=== PATIENT | female | born 1995 | race African-American/Black ===

== ENCOUNTER 2018-09-24 15:19 | Emergency (ER) | payer MEDICAID ==
[2018-09-24] MEDS ORDERED: DUONEB 0.5-3 MG/3 ml Neb IH ONE ×2 (15:49→16:03)
[2018-09-24] MEDS ORDERED: DELTASONE 20 MG PO ONE (15:49)
--- NOTE | 2018-09-24 15:50 | ERPHSYRPT ---
- History of Present Illness Time Seen by Provider: 09/24/18 15:44 Patient Subjective Stated Complaint: had asthma flare up today and ran out of her inhaler. does not smoke but uses a vape Triage Nursing Assessment: ambulated to room per self. skin w/d, color normal, resp nonlabored. able to talk in complete sentences. Physician History: PATIENT WITH A HISTORY OF ASTHMA, STATES HER INHALER RAN OUT 2 DAYS AGO, HAS SORETHROAT AND CHEST TIGHTNESS, DENIES COUGH, FEVER ODR CHILLS. Timing/Duration: yesterday Activities at Onset: none Severity of Dyspnea-Max: moderate Severity of Dyspnea-Current: moderate Possible Cause: occasional episodes Modifying Factors: Improves With: activity Associated Symptoms: denies symptoms Allergies/Adverse Reactions: No Known Drug Allergies Allergy (Unverified 09/24/18 15:41) Home Medications: Albuterol Sulfate [Ventolin Hfa] 8 gm IH UD 09/24/18 [History] Dextroamphetamine/Amphetamine [Adderall 12.5 mg Tablet] 12.5 mg PO DAILY [History] Escitalopram Oxalate 10 mg [Lexapro 10 MG] 10 mg PO DAILY 09/24/18 [History] Medroxyprogesterone Acet [Depo-Provera] 150 mg IM UD 09/24/18 [History] Prednisone 5 mg [Deltasone 5 mg] 5 mg PO DAILY 09/24/18 [History] Hx Tetanus, Diphtheria Vaccination/Date Given: Yes Hx Influenza Vaccination/Date Given: Yes Hx Pneumococcal Vaccination/Date Given: No - Review of Systems Constitutional: No Fever, No Chills Ears, Nose, & Throat: Throat Pain Respiratory: Dyspnea, Wheezing Cardiac: No Symptoms Musculoskeletal: No Symptoms Psychological: No Symptoms - Past Medical History Pertinent Past Medical History: Yes Respiratory History: Asthma Psycho-Social History: Anxiety, Attention Deficit Disorder - Past Surgical History Past Surgical History: No - Social History Smoking Status: Never smoker Exposure to second hand smoke: No Drug Use: none Patient Lives Alone: No - Female History Hx Last Menstrual Period: 09/09/18 Hx Now: No (depo shot) - Nursing Vital Signs Nursing Vital Signs: Initial Vital Signs Temperature 98.3 F 09/24/18 15:21 Pulse Rate 91 H 03/15/19 15:21 Respiratory Rate 16 09/24/18 15:21 Blood Pressure 124/78 09/24/18 15:21 O2 Sat by Pulse Oximetry 99 09/24/18 15:21 Pain Scale Pain Intensity 0 - Physical Exam General Appearance: mild distress Eye Exam: PERRL/EOMI Ears, Nose, Throat Exam: pharyngeal erythema Neck Exam: normal inspection, supple Respiratory Exam: diminished breath sounds, wheezing (TERMINAL WHEEZES EXPIRATORY) Cardiovascular/Chest Exam: normal heart sounds Abdominal/Gastrointestinal Exam: soft, normal bowel sounds Peripheral Pulses Exam: carotid (R): 2+, carotid (L): 2+, femoral (R): 2+, femoral (L): 2+, dorsalis-pedis (R): 2+, dorsalis-pedis (L): 2+ Neurologic Exam: alert, oriented x 3 SpO2 Interpretation: normal SpO2: 99 Ordered Tests: Active Orders 24 hr Category Date Time Status Peak Expiratory Flow Rate ONCE RT 09/24/18 15:49 Completed Respiratory Nebulizer STAT RT 09/24/18 15:49 Completed Respiratory Therapy Assessment DAILY RT 09/25/18 07:00 Completed Medication Summary Discontinued Medications Generic Name Dose Route Start Last Admin Trade Name Freq PRN Reason Stop Dose Admin Albuterol/Ipratropium 3 ml 09/24/18 15:49 09/24/18 16:08 Duoneb 0.5-3 Mg/3 Ml Neb IH 09/24/18 15:50 3 ml STAT ONE Administration Albuterol/Ipratropium Confirm 09/24/18 16:03 Duoneb 0.5-3 Mg/3 Ml Neb Administered 09/24/18 16:04 Dose 3 ml IH .STK-MED ONE Prednisone 60 mg 09/24/18 15:49 09/24/18 16:17 Deltasone 20 Mg PO 09/24/18 15:50 60 mg STAT ONE Administration Prednisone Confirm 09/24/18 16:16 Deltasone 20 Mg Administered 09/24/18 16:17 Dose 60 mg .ROUTE .STK-MED ONE - Progress Progress: improved, re-examined Air Movement: good Progress Note: 09/24/18 16:36 DUONEB AEROSOL TX, PREDNISONE 60MG ORALLY Counseled pt/family regarding: lab results, diagnosis, need for follow-up - Departure Time of Disposition: 17:00 Departure Disposition: Home Clinical Impression: ACUTE EXACERBATION ASTHMA Condition: Stable Critical Care Time: No Additional Instructions: ALBUTEROL INHALER 2 PUFFS EVERY 4 HOURS NEEDED. ANTIBIOTIC ZITHROMAX 250MG, 2 TABLETS DAY 1, THEN 1 TABLET DAILY FOR 4 DAYS, PREDNISONE 20 MG, 2 TABLETS DAILY FOR 5 DAYS. CONSULT YOUR PRIMARY CARE PROVIDER FOR FOLLOWUP. RETURN TO EMERGENCY ROOM FOR DIFFICULTY BREATHING. Prescriptions: Albuterol 8 gm Mdi Hfa [Ventolin Hfa MDI] 2 puffs IH Q4H PRN PRN #1 [email or web address] PRN Reason: DIFFICULTY BREATHING Azithromycin 250 mg [Zithromax 250 MG TABLET] 250 mg PO DAILY #6 tablet Prednisone 20 mg [Deltasone 20 mg] 40 mg PO DAILY #10 tablet
[2018-09-24] MEDS ORDERED: DELTASONE 20 MG ONE (16:16)
[2018-09-24 17:25] VITALS: BP 135/67; PULSE 88; O2SAT 99
== END 2018-09-24 17:26 | disposition home or self-care (01) ==
LOC: ED 15:19
DX: J45.901 Unspecified asthma with (acute) exacerbation (principal)
CPT/HCPCS: 87651; 94150; 94640; 99284; A9270-GY

== ENCOUNTER 2018-12-10 12:41 | Emergency (ER) | payer MEDICAID ==
--- NOTE | 2018-12-10 13:04 | ERPHSYRPT ---
- History of Present Illness Time Seen by Provider: 12/10/18 12:55 Source: patient Exam Limitations: clinical condition Patient Subjective Stated Complaint: pt here for sob that started at 1130 this morning, she states she thinks it is her allergies, her nebulizer broke and is unable to take treaments Triage Nursing Assessment: pt alert, resp easy, chest clear. abd soft, no edema , no distress, coughing up white sputum Physician History: PATIENT WITH A HISTORY OF ASTHMA STATES SHE HAS BEEN SHORT OF BREATH X 2-3 DAYS , PRODUCTIVE COUGH CLEAR SPUTUM, STATES SHE RAN OUT OF HER INHALER AND HER NEBULIZER IS BROKE. DENIES CHEST PAIN. FEVER OR CHILLS. Timing/Duration: day(s) Activities at Onset: activity Severity of Dyspnea-Max: moderate Severity of Dyspnea-Current: moderate Possible Cause: occasional episodes Modifying Factors: Improves With: activity Associated Symptoms: cough, wheezing International travel in last 2 weeks: No Allergies/Adverse Reactions: No Known Drug Allergies Allergy (Unverified 09/24/18 15:41) Home Medications: Albuterol Sulfate [Ventolin Hfa] 8 gm IH UD 09/24/18 [History] Dextroamphetamine/Amphetamine [Adderall 12.5 mg Tablet] 12.5 mg PO DAILY [History] Escitalopram Oxalate 10 mg [Lexapro 10 MG] 10 mg PO DAILY 09/24/18 [History] Hx Tetanus, Diphtheria Vaccination/Date Given: Yes Hx Influenza Vaccination/Date Given: No Hx Pneumococcal Vaccination/Date Given: No Immunizations Up to Date: Yes - Review of Systems Constitutional: No Fever, No Chills Eyes: No Symptoms Ears, Nose, & Throat: No Symptoms Respiratory: Cough, Dyspnea on Exertion (FRAGA), No Dyspnea Cardiac: No Symptoms, No Chest Pain, No Edema, No Syncope Abdominal/Gastrointestinal: No Symptoms, No Abdominal Pain, No Nausea, No Vomiting, No Diarrhea Genitourinary Symptoms: No Dysuria Musculoskeletal: No Symptoms, No Back Pain, No Neck Pain Skin: No Symptoms, No Rash Neurological: No Dizziness, No Focal Weakness, No Sensory Changes Psychological: No Symptoms Endocrine: No Symptoms All Other Systems: Reviewed and Negative - Past Medical History Pertinent Past Medical History: Yes Respiratory History: Asthma Psycho-Social History: Anxiety, Attention Deficit Disorder - Past Surgical History Past Surgical History: Yes - Social History Smoking Status: Never smoker Exposure to second hand smoke: No Drug Use: none Patient Lives Alone: No - Female History Hx Last Menstrual Period: unsure Hx Now: No - Nursing Vital Signs Nursing Vital Signs: Initial Vital Signs Temperature 98.4 F 12/10/18 12:48 Pulse Rate 76 12/10/18 12:48 Respiratory Rate 18 12/10/18 12:48 Blood Pressure 118/79 12/10/18 12:48 O2 Sat by Pulse Oximetry 99 12/10/18 12:48 Pain Scale Pain Intensity 0 - Physical Exam General Appearance: no apparent distress, alert Eye Exam: PERRL/EOMI Neck Exam: normal inspection, supple Respiratory Exam: diminished breath sounds, other (TERMINAL EXPIRATORY WHEEZES FAINT) Cardiovascular/Chest Exam: normal heart sounds, regular rate/rhythm Abdominal/Gastrointestinal Exam: No tenderness, No distention, No mass Extremity Exam: non-tender, normal range of motion, normal inspection, no calf tenderness, no pedal edema Peripheral Pulses Exam: carotid (R): 2+, carotid (L): 2+, femoral (R): 2+, femoral (L): 2+, dorsalis-pedis (R): 2+, dorsalis-pedis (L): 2+ Neurologic Exam: alert, oriented x 3, cooperative, 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, sensation nml, No motor deficits Skin Exam: normal color, warm, No dry SpO2 Interpretation: normal SpO2: 99 Ordered Tests: Active Orders 24 hr Category Date Time Status Peak Expiratory Flow Rate ONCE RT 12/10/18 13:06 Completed Respiratory Therapy Assessment DAILY RT 12/10/18 13:21 Completed Medication Summary Discontinued Medications Generic Name Dose Route Start Last Admin Trade Name Joeq PRN Reason Stop Dose Admin Albuterol/Ipratropium 3 ml 12/10/18 13:05 12/10/18 13:17 Duoneb 0.5-3 Mg/3 Ml Neb IH 12/10/18 13:06 3 ml STAT ONE Administration Albuterol/Ipratropium Confirm 12/10/18 13:10 Duoneb 0.5-3 Mg/3 Ml Neb Administered 12/10/18 13:11 Dose 3 ml IH .STK-MED ONE Prednisone 60 mg 12/10/18 13:06 12/10/18 13:21 Deltasone 20 Mg PO 12/10/18 13:07 60 mg STAT ONE Administration Prednisone Confirm 12/10/18 13:20 Deltasone 20 Mg Administered 12/10/18 13:21 Dose 60 mg .ROUTE .STK-MED ONE - Progress Progress Note: 12/10/18 13:15 ADMINISTERED PREDNISONE 60MG, ORALLY, DUO NEB AEROSOL TX Counseled pt/family regarding: diagnosis, need for follow-up - Departure Departure Disposition: Home Clinical Impression: ACUTE EXACERBATION ASTHMA Condition: Stable Critical Care Time: No Referrals: DOCTOR,NO FAMILY [Primary Care Provider] - Additional Instructions: ALBUTEROL INHALER 2 PUFFS EVERY 4 HOURS NEEDED. ALBUTEROL NEBULIZER EVERY 4 HOURS AT HOME FOR DIFFICULTY BREATHING. ANTIBIOTIC AMOXICILLIN 500MG EVER 8 HOURS FOR 1 WEEK. PREDNISONE 20MG, 2 TABLETS DAILY FOR 4 DAYS. CONSULT YOUR PRIMARY CARE PROVIDER FOR FOLLOWUP IN 1 WEEK. Prescriptions: Albuterol 2.5 mg/3 ml Neb [Proventil 2.5 mg/3 ml Neb] 2.5 mg IH Q4HPRN PRN #30 neb PRN Reason: DIFFICULTY BREATHING Albuterol 8 gm Mdi Hfa [Ventolin Hfa MDI] 2 puffs IH Q4HPRN PRN #1 [email or web address] PRN Reason: DIFFICULTY BREATHING Amoxicillin 500 mg PO TID #21 capsule Prednisone 20 mg [Deltasone 20 mg] 2 tablet PO DAILY #8 tablet
[2018-12-10] MEDS ORDERED: DUONEB 0.5-3 MG/3 ml Neb IH ONE ×2 (13:05→13:10)
[2018-12-10] MEDS ORDERED: DELTASONE 20 MG PO ONE (13:06)
[2018-12-10] MEDS ORDERED: DELTASONE 20 MG ONE (13:20)
[2018-12-10 13:24] VITALS: PULSE 80
[2018-12-10 14:11] VITALS: BP 112/70; O2SAT 100
== END 2018-12-10 14:13 | disposition home or self-care (01) ==
LOC: ED 12:41
DX: J45.901 Unspecified asthma with (acute) exacerbation (principal)
CPT/HCPCS: 94640; 99283; A9270-GY

== ENCOUNTER 2018-12-13 12:15 | Emergency (ER) | payer MEDICAID ==
[~2018-12-13 12:15] MED LIST: PROVENTIL 2.5 MG/3 ML NEB IH ONE
[2018-12-13 12:17] VITALS: BP 106/87; O2SAT 100
--- NOTE | 2018-12-13 12:25 | ERPHSYRPT ---
- History of Present Illness Time Seen by Provider: 12/13/18 12:20 Source: patient Exam Limitations: clinical condition Physician History: 23m y/o female with h/o asthma presents with acute exacerbation of her asthma. pt seen here 12/10/18 for same issue. pt at that time told ED physician her nebulizer machine broken. pt did not fill any of her rx from 3 days ago. she states her papaw sending money. Timing/Duration: today Activities at Onset: none Severity of Dyspnea-Max: moderate Severity of Dyspnea-Current: moderate Possible Cause: occasional episodes Associated Symptoms: intermittent, wheezing Allergies/Adverse Reactions: No Known Drug Allergies Allergy (Verified 12/13/18 12:24) Home Medications: Albuterol Sulfate [Ventolin Hfa] 8 gm IH UD 09/24/18 [History] Dextroamphetamine/Amphetamine [Adderall 12.5 mg Tablet] 12.5 mg PO DAILY [History] Escitalopram Oxalate 10 mg [Lexapro 10 MG] 10 mg PO DAILY 09/24/18 [History] Hx Tetanus, Diphtheria Vaccination/Date Given: Yes Hx Influenza Vaccination/Date Given: No Hx Pneumococcal Vaccination/Date Given: No - Review of Systems Constitutional: No Symptoms Eyes: No Symptoms Ears, Nose, & Throat: No Symptoms Respiratory: Cough, Dyspnea, Wheezing Cardiac: No Symptoms Abdominal/Gastrointestinal: No Symptoms Genitourinary Symptoms: No Symptoms Musculoskeletal: No Symptoms Skin: No Symptoms Neurological: No Symptoms Psychological: Anxiety Endocrine: No Symptoms Hematologic/Lymphatic: No Symptoms Immunological/Allergic: No Symptoms All Other Systems: Reviewed and Negative - Past Medical History Pertinent Past Medical History: Yes Neurological History: No Pertinent History ENT History: No Pertinent History Cardiac History: No Pertinent History Respiratory History: Asthma Endocrine Medical History: No Pertinent History Musculoskeletal History: No Pertinent History GI Medical History: No Pertinent History History: No Pertinent History Psycho-Social History: Anxiety, Attention Deficit Disorder Female Reproductive Disorders: No Pertinent History - Past Surgical History Past Surgical History: Yes Neuro Surgical History: No Pertinent History Cardiac: No Pertinent History Respiratory: No Pertinent History Gastrointestinal: No Pertinent History Genitourinary: No Pertinent History Musculoskeletal: No Pertinent History Female Surgical History: No Pertinent History - Social History Smoking Status: Never smoker Exposure to second hand smoke: No Drug Use: none Patient Lives Alone: No - Nursing Vital Signs Nursing Vital Signs: Initial Vital Signs Pulse Rate 103 H 12/13/18 12:15 Respiratory Rate 100 H 12/13/18 12:15 Blood Pressure 106/87 12/13/18 12:15 O2 Sat by Pulse Oximetry 100 12/13/18 12:15 Pain Scale Pain Intensity 2 - Physical Exam General Appearance: mild distress, alert, anxiety Eye Exam: PERRL/EOMI Ears, Nose, Throat Exam: hearing grossly normal Neck Exam: normal inspection, non-tender, supple, full range of motion Respiratory Exam: respiratory distress (mild), wheezing, No crackles/rales, No rhonchi, No stridor Cardiovascular/Chest Exam: tachycardia Abdominal/Gastrointestinal Exam: soft, normal bowel sounds, No tenderness Rectal Exam: not done Extremity Exam: non-tender, normal range of motion, normal inspection Neurologic Exam: alert, oriented x 3, cooperative, 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 Skin Exam: normal color, warm, dry Lymphatic Exam: No adenopathy SpO2 Interpretation: normal SpO2: 100 O2 Delivery: Room Air Ordered Tests: Active Orders 24 hr Category Date Time Status Respiratory Therapy Assessment DAILY RT 12/13/18 12:37 Active Medication Summary Generic Name Dose Route Start Last Admin Trade Name Freq PRN Reason Stop Dose Admin Albuterol Sulfate 8 gm 12/13/18 12:28 Ventolin Hfa Mdi IH 01/12/19 12:27 Q4H PRN PRN SHORTNESS OF BREATH/WHEEZING Discontinued Medications Generic Name Dose Route Start Last Admin Trade Name Freq PRN Reason Stop Dose Admin Albuterol Sulfate 2.5 mg 12/13/18 12:15 Proventil 2.5 Mg/3 Ml Neb IH 12/13/18 12:16 STAT ONE Methylprednisolone Sodium Succinate 125 mg 12/13/18 12:30 12/13/18 12:34 Solu-Medrol 125 Mg IM 12/13/18 12:31 125 mg STAT ONE Administration Methylprednisolone Sodium Succinate Confirm 12/13/18 12:32 Solu-Medrol 125 Mg Administered 12/13/18 12:33 Dose 125 mg .ROUTE .STK-MED ONE - Progress Progress: improved Air Movement: good Progress Note: 12/13/18 12:48 pt states she is much better. Blood Culture(s) Obtained: No Antibiotics given: No Counseled pt/family regarding: diagnosis, need for follow-up - Departure Departure Disposition: Home Clinical Impression: Exacerbation of asthma Condition: Stable Critical Care Time: No Referrals: DOCTOR,NO FAMILY [Primary Care Provider] - Additional Instructions: fill all of the prescription medication written for you. return to ED as needed.
[2018-12-13] MEDS ORDERED: Ventolin Hfa MDI IH PRN (12:28)
[2018-12-13] MEDS ORDERED: solu-MEDROL 125 MG IM ONE (12:30)
[2018-12-13] MEDS ORDERED: solu-MEDROL 125 MG ONE (12:32)
[2018-12-13 12:53] VITALS: PULSE 96
== END 2018-12-13 12:58 | disposition home or self-care (01) ==
LOC: ED 12:15
DX: J45.901 Unspecified asthma with (acute) exacerbation (principal)
CPT/HCPCS: 94640; 96372; 99283; J2930; J7609; A9270-GY

== ENCOUNTER 2019-06-18 07:43 | Emergency (ER) | payer OTHER ==
[2019-06-18] MEDS ORDERED: solu-MEDROL 125 MG IM ONE (07:48)
[2019-06-18] MEDS ORDERED: DUONEB 0.5-3 MG/3 ml Neb IH ONE (07:48)
[2019-06-18 07:49] VITALS: O2SAT 100
[2019-06-18] MEDS ORDERED: PROVENTIL 2.5 MG/3 ML NEB IH ONE ×2 (07:51→07:55)
[2019-06-18] MEDS ORDERED: solu-MEDROL 125 MG ONE (07:53)
--- NOTE | 2019-06-18 07:54 | ERPHSYRPT ---
- History of Present Illness Time Seen by Provider: 06/18/19 07:52 Source: patient Exam Limitations: no limitations Patient Subjective Stated Complaint: Pt states "I am out of my rescue inhailer and I am having a bit of an asthma attack this morning." Triage Nursing Assessment: Pt presented alert and oriented X 3, skni pwd Pt ambulates with an upright steady gait, able to speak in clear full sentences. Pt tachypniec, wheezes heard throughout. Physician History: Pt states "I am out of my rescue inhailer and I am having a bit of an asthma attack this morning." She has asthma since childhood, no fever Timing/Duration: today Possible Cause: frequent episodes Modifying Factors: Improves With: nothing Associated Symptoms: wheezing Allergies/Adverse Reactions: No Known Drug Allergies Allergy (Verified 12/13/18 12:24) Home Medications: Albuterol Sulfate [Ventolin Hfa] 8 gm IH UD 09/24/18 [History] Dextroamphetamine/Amphetamine [Adderall 12.5 mg Tablet] 12.5 mg PO DAILY [History] Escitalopram Oxalate [Lexapro] 20 mg PO DAILY 06/18/19 [History] Hx Tetanus, Diphtheria Vaccination/Date Given: Yes Hx Influenza Vaccination/Date Given: Yes Hx Pneumococcal Vaccination/Date Given: No Immunizations Up to Date: Yes - Review of Systems Constitutional: No Fever, No Chills Eyes: No Symptoms Ears, Nose, & Throat: No Symptoms Respiratory: Dyspnea, Wheezing, No Cough Cardiac: No Chest Pain, No Edema, No Syncope Abdominal/Gastrointestinal: No Abdominal Pain, No Nausea, No Vomiting, No Diarrhea Genitourinary Symptoms: No Dysuria Musculoskeletal: No Back Pain, No Neck Pain Skin: No Rash Neurological: No Dizziness, No Focal Weakness, No Sensory Changes Psychological: No Symptoms Endocrine: No Symptoms All Other Systems: Reviewed and Negative - Past Medical History Pertinent Past Medical History: Yes Neurological History: No Pertinent History ENT History: No Pertinent History Cardiac History: No Pertinent History Respiratory History: Asthma Endocrine Medical History: No Pertinent History Musculoskeletal History: No Pertinent History GI Medical History: No Pertinent History History: No Pertinent History Psycho-Social History: Anxiety, Attention Deficit Disorder Female Reproductive Disorders: No Pertinent History - Past Surgical History Past Surgical History: Yes Neuro Surgical History: No Pertinent History Cardiac: No Pertinent History Respiratory: No Pertinent History Gastrointestinal: No Pertinent History Genitourinary: No Pertinent History Musculoskeletal: No Pertinent History Female Surgical History: No Pertinent History - Social History Smoking Status: Current every day smoker How long have you smoked: years Exposure to second hand smoke: Yes Drug Use: none Patient Lives Alone: No - Female History Hx Last Menstrual Period: 06/01/2019 Hx Now: No - Nursing Vital Signs Nursing Vital Signs: Initial Vital Signs Temperature 97.8 F 06/18/19 07:43 Pulse Rate 96 H 06/18/19 07:43 Respiratory Rate 26 H 06/18/19 07:43 Blood Pressure 131/90 06/18/19 07:43 O2 Sat by Pulse Oximetry 100 06/18/19 07:43 Pain Scale Pain Intensity 2 - Physical Exam General Appearance: no apparent distress, alert Eye Exam: PERRL/EOMI Neck Exam: normal inspection, supple Respiratory Exam: accessory muscle use, wheezing Cardiovascular/Chest Exam: normal heart sounds, regular rate/rhythm Abdominal/Gastrointestinal Exam: soft, No tenderness, No distention, No mass Extremity Exam: non-tender, normal range of motion, normal inspection, no calf tenderness, no pedal edema Neurologic Exam: alert, oriented x 3, cooperative, 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, sensation nml, No motor deficits Skin Exam: normal color, warm, No dry SpO2 Interpretation: normal SpO2: 100 - Course Nursing assessment & vital signs reviewed: Yes - Radiology Exams Chest X-ray Interpretation: Reviewed by me, Negative, No Pneumonia Ordered Tests: Active Orders 24 hr Category Date Time Status Oxygen-ED Only Nasal Cannula 2 lpm Care 06/18/19 07:48 Active CHEST 2 VIEWS (PA AND LAT) Stat Exams 06/18/19 07:48 Ordered BMP Stat Lab 06/18/19 08:01 Completed CBC W DIFF Stat Lab 06/18/19 08:01 Completed Respiratory Therapy Assessment DAILY RT 06/18/19 07:56 Completed Medication Summary Discontinued Medications Generic Name Dose Route Start Last Admin Trade Name Freq PRN Reason Stop Dose Admin Albuterol Sulfate Confirm 06/18/19 07:51 Proventil 2.5 Mg/3 Ml Neb Administered 06/18/19 07:52 Dose 2.5 mg IH .STK-MED ONE Albuterol Sulfate 2.5 mg 06/18/19 07:55 06/18/19 07:58 Proventil 2.5 Mg/3 Ml Neb IH 06/18/19 07:56 2.5 mg STAT ONE Administration Albuterol/Ipratropium 3 ml 06/18/19 07:48 Duoneb 0.5-3 Mg/3 Ml Neb IH 06/18/19 07:49 STAT ONE Methylprednisolone Sodium Succinate 125 mg 06/18/19 07:48 06/18/19 07:55 Solu-Medrol 125 Mg IM 06/18/19 07:49 125 mg STAT ONE Administration Methylprednisolone Sodium Succinate Confirm 06/18/19 07:53 Solu-Medrol 125 Mg Administered 06/18/19 07:54 Dose 125 mg .ROUTE .STK-MED ONE Lab/Rad Data: Laboratory Result Diagrams 06/18/19 08:01 06/18/19 08:01 Laboratory Results 06/18/19 06/18/19 Range/Units 08:01 08:01 WBC 9.4 (4.0-10.5) K/mm3 RBC 4.79 (4.1-5.4) M/mm3 Hgb 13.7 (12.0-16.0) gm/dl Hct 41.3 (35-47) % MCV 86.2 (78-100) fl MCH 28.6 (26-32) pg MCHC 33.2 (32-36) g/dl RDW 13.1 (11.5-14.0) % Plt Count 323 (150-450) K/mm3 MPV 9.0 (6-9.5) fl Gran % 53.7 (36.0-66.0) % Eos # (Auto) 1.27 H (0-0.5) Absolute Lymphs (auto) 2.42 (1.0-4.6) Absolute Monos (auto) 0.62 (0.0-1.3) Lymphocytes % 25.8 (24.0-44.0) % Monocytes % 6.6 (0.0-12.0) % Eosinophils % 13.5 H (0.00-5.0) % Basophils % 0.4 (0.0-0.4) % Absolute Granulocytes 5.03 (1.4-6.9) Basophils # 0.04 (0-0.4) Sodium 145 (137-145) mmol/L Potassium 4.4 (3.5-5.1) mmol/L Chloride 111 H (98-107) mmol/L Carbon Dioxide 27 (22-30) mmol/L Anion Gap 11.2 (5-15) MEQ/L BUN 13 (7-17) mg/dL Creatinine 0.73 (0.52-1.04) mg/dL Estimated GFR > 60.0 ML/MIN Glucose 86 (74-106) mg/dL Calcium 10.0 (8.4-10.2) mg/dL - Progress Progress: improved Air Movement: good Blood Culture(s) Obtained: No Antibiotics given: No Counseled pt/family regarding: lab results, diagnosis, need for follow-up, rad results - Departure Departure Disposition: Home Clinical Impression: Exacerbation of asthma Qualifiers: Asthma severity: moderate Asthma persistence: unspecified Qualified Code(s): J45.901 - Unspecified asthma with (acute) exacerbation Condition: Stable Critical Care Time: Yes Critical Care Time(excluding separately billable procedures): Critical 30-74 mins Referrals: LARRY JOHNS DO [Primary Care Provider] - Instructions: Asthma, Adult (DC) Additional Instructions: please use your rescue inhaler for next three days. Discharge/Care Plan JAYCHANTELLE D was seen on 06/18/19 in the Emergency Room. The patient was counseled regarding Diagnosis,Lab results, Imaging studies, need for follow up and when to return to the Emergency Room. Prescriptions given: Discharge Note I have spoken with the patient and/or caregivers. I have explained the patient' s condition, diagnosis and treatment plan based on the information available to me at this time. I have answered the patient's and/or caregiver's questions and addressed any concerns. The patient and/or caregivers have as good understanding of the patient's diagnosis, condition and treatment plan as can be expected at this point. The vital signs have been stable. The patient's condition is stable and appropriate for discharge from the emergency department. The patient will pursue further outpatient evaluation with the primary care physician or other designated or consulting physician as outlined in the discharge instructions. The patient and/or caregivers are agreeable to this plan of care and follow-up instructions have been explained in detail. The patient and/or caregivers have received these instruction. The patient/and or caregivers are aware that any significant change in condition or worsening of symptoms should prompt an immediate return to this or the closest emergency department or call 911.
[2019-06-18 08:04] LABS: Absolute Neutrophil Ct (ANC) 5.03 (1.4-6.9); BASOPHIL % 0.4 % (0.0-0.4); Basophil (Absolute #) 0.04 (0-0.4); Eosinophil % 13.5 % (0.00-5.0); Eosinophil (Absolute #) 1.27 (0-0.5); Hematocrit 41.3 % (35-47); Hemoglobin 13.7 gm/dl (12.0-16.0); Lymphocyte (Absolute #) 2.42 (1.0-4.6); Lymphocytes % 25.8 % (24.0-44.0); Mean Cell Volume 86.2 fl (78-100); Mean Corpuscular Hemoglobin 28.6 pg (26-32); Mean Corpuscular Hgb Concent. 33.2 g/dl (32-36); Monocyte (Absolute #) 0.62 (0.0-1.3); Monocytes % 6.6 % (0.0-12.0); Neutrophil % 53.7 % (36.0-66.0); Platelet Count 323 K/mm3 (150-450); Red Blood Count 4.79 M/mm3 (4.1-5.4); Red Cell Distribution Width 13.1 % (11.5-14.0); White Blood Count 9.4 K/mm3 (4.0-10.5)
[2019-06-18 08:15] LABS: ANION GAP 11.2 MEQ/L (5-15); BLOOD UREA NITROGEN 13 mg/dL (7-17); CHLORIDE 111 mmol/L (98-107); Carbon Dioxide 27 mmol/L (22-30); Creatinine 1 0.73 mg/dL (0.52-1.04); Glucose 86 mg/dL (74-106); Potassium 4.4 mmol/L (3.5-5.1); SODIUM 145 mmol/L (137-145)
[2019-06-18 08:42] VITALS: BP 99/69; PULSE 92
--- NOTE | 2019-06-18 19:36 | XRAY ---
Indication: Short of breath. Comparison: None PA/lateral chest demonstrates normal heart, lungs, and bony thorax with incidental bilateral nipple jewelry.
== END 2019-06-18 08:42 | disposition home or self-care (01) ==
LOC: ED 07:43
DX: J45.901 Unspecified asthma with (acute) exacerbation (principal)
CPT/HCPCS: 36415; 71046; 80048; 85025; 94640; 96372; 99284; 99291; J2930; J7609; A9270-GY

== ENCOUNTER 2019-09-21 13:42 | Emergency (ER) | payer OTHER ==
[2019-09-21] MEDS ORDERED: solu-MEDROL 125 MG IV ONE (13:46)
[2019-09-21] MEDS ORDERED: DUONEB 0.5-3 MG/3 ml Neb IH ONE ×2 (13:46→13:50)
[2019-09-21] MEDS ORDERED: solu-MEDROL 125 MG ONE (14:03)
--- NOTE | 2019-09-21 14:16 | XRAY ---
Indication: Short of breath. Comparison: June 18, 2019. Portable chest continues to demonstrate normal heart, lungs, and bony thorax with incidental bilateral nipple jewelry.
[2019-09-21 14:37] LABS: INFLUENZA A NEGATIVE (NEGATIVE); INFLUENZA B NEGATIVE (NEGATIVE); RESPIRATORY SYNCTIAL VIRUS NEGATIVE (Negative)
[2019-09-21 15:00] VITALS: BP 154/84; PULSE 126
[2019-09-21 15:05] VITALS: O2SAT 99
--- NOTE | 2019-09-21 15:05 | ERPHSYRPT ---
- History of Present Illness Time Seen by Provider: 09/21/19 13:50 Exam Limitations: no limitations Patient Subjective Stated Complaint: sob and wheezing onset 8 am today Triage Nursing Assessment: pt arrives with rapid resp and auditible wheezing noted pt has hx of asthma reports tightness noted throughout chest. pt p/w/d resp easy [id number] Physician History: Patient is a 24-year-old female with a history of asthma presents to our ED with an asthma exacerbation. Patient is wheezing. Symptoms started approximately 8 this morning. Patient self treated with albuterol inhaler with no relief. No associated chest pain. No nausea or vomiting. No diarrhea. No rash. The weather may have triggered her asthma. Patient voices no other complaints at this time. Timing/Duration: today Activities at Onset: rest, sleep Severity of Dyspnea-Max: mild Severity of Dyspnea-Current: mild Possible Cause: occasional episodes Modifying Factors: Improves With: albuterol inhaler Associated Symptoms: denies symptoms, constant, cough, wheezing, No chest pain/ discomfort, No edema, No fever, No insomnia, No loss of appetite, No lightheadedness, No weakness, No ankle swelling, No chills, No hemoptysis, No calf pain, No dizziness, No heaviness, No heart racing, No lightheadedness, No leg swelling, No muscle spasms feet, No muscle spasms hands, No painful breathing, No productive cough International travel in last 2 weeks: No Allergies/Adverse Reactions: No Known Drug Allergies Allergy (Verified 09/21/19 13:59) Home Medications: Escitalopram Oxalate [Lexapro] 20 mg PO DAILY 06/18/19 [History] Cetirizine HCl 10 mg PO DAILY 09/21/19 [History] Dextroamphetamine/Amphetamine [Dextroamp-Amphetamin 20 mg Tab] 40 mg PO DAILY [History] Loratadine 10 mg [Claritin 10 mg] 10 mg PO DAILY 09/21/19 [History] Prednisone 10 mg [Deltasone 10 mg] 40 mg PO DAILY 09/21/19 [History] Hx Tetanus, Diphtheria Vaccination/Date Given: Yes Hx Influenza Vaccination/Date Given: No Hx Pneumococcal Vaccination/Date Given: No - Review of Systems Constitutional: No Fever, No Chills Eyes: No Symptoms Ears, Nose, & Throat: No Symptoms Respiratory: No Symptoms, Cough, Wheezing, No Dyspnea Cardiac: No Symptoms, No Chest Pain, No Edema, No Syncope Abdominal/Gastrointestinal: No Symptoms, No Abdominal Pain, No Nausea, No Vomiting, No Diarrhea Genitourinary Symptoms: No Symptoms, No Dysuria Musculoskeletal: No Symptoms, No Back Pain, No Neck Pain Skin: No Symptoms, No Rash Neurological: No Symptoms, No Dizziness, No Focal Weakness, No Sensory Changes Psychological: No Symptoms Endocrine: No Symptoms Hematologic/Lymphatic: No Symptoms All Other Systems: Reviewed and Negative - Past Medical History Pertinent Past Medical History: Yes Neurological History: No Pertinent History ENT History: No Pertinent History Cardiac History: No Pertinent History Respiratory History: Asthma Endocrine Medical History: No Pertinent History Musculoskeletal History: No Pertinent History GI Medical History: No Pertinent History History: No Pertinent History Psycho-Social History: Anxiety, Attention Deficit Disorder Female Reproductive Disorders: No Pertinent History - Past Surgical History Past Surgical History: Yes Neuro Surgical History: No Pertinent History Cardiac: No Pertinent History Respiratory: No Pertinent History Gastrointestinal: No Pertinent History Genitourinary: No Pertinent History Musculoskeletal: No Pertinent History Female Surgical History: No Pertinent History Other Surgical History: oral - Social History Smoking Status: Current some day smoker How long have you smoked: years Exposure to second hand smoke: Yes Drug Use: none Patient Lives Alone: No - Female History Hx Last Menstrual Period: 08/14/19 Hx Now: No - Nursing Vital Signs Nursing Vital Signs: Initial Vital Signs Temperature 98.2 F 09/21/19 13:42 Pulse Rate 133 H 09/21/19 13:42 Respiratory Rate 28 H 09/21/19 13:42 Blood Pressure 176/99 09/21/19 13:42 O2 Sat by Pulse Oximetry 99 09/21/19 13:42 Pain Scale Pain Intensity 0 - Physical Exam General Appearance: no apparent distress Eye Exam: PERRL/EOMI Ears, Nose, Throat Exam: hearing grossly normal Neck Exam: normal inspection, supple Respiratory Exam: prolonged expirations, wheezing, No respiratory distress Cardiovascular/Chest Exam: normal heart sounds, regular rate/rhythm Abdominal/Gastrointestinal Exam: soft, No tenderness, No distention, No mass Extremity Exam: non-tender, normal range of motion, normal inspection, no calf tenderness, no pedal edema Neurologic Exam: alert, oriented x 3, cooperative, manager document control II-XII nml as tested, sensation nml, No motor deficits Skin Exam: normal color, warm, No dry SpO2 Interpretation: normal SpO2: 99 O2 Delivery: Room Air - Course Nursing assessment & vital signs reviewed: Yes - Radiology Exams Chest X-ray Interpretation: Teleradiologist Report (Chest x-ray normal. No acute pathology observed.) Ordered Tests: Active Orders 24 hr Category Date Time Status Health Sanitarian STAT Care 09/21/19 13:47 Active IV Insertion STAT Care 09/21/19 14:19 Active CHEST 1 VIEW (PORTABLE) Stat Exams 09/21/19 13:47 Completed Peak Expiratory Flow Rate ONCE RT 09/21/19 13:59 Active Respiratory Therapy Assessment DAILY RT 09/21/19 13:57 Active Medication Summary Discontinued Medications Generic Name Dose Route Start Last Admin Trade Name Freq PRN Reason Stop Dose Admin Albuterol/Ipratropium 3 ml 09/21/19 13:46 09/21/19 13:52 Duoneb 0.5-3 Mg/3 Ml Neb IH 09/21/19 13:47 3 ml STAT ONE Administration Albuterol/Ipratropium Confirm 09/21/19 13:50 Duoneb 0.5-3 Mg/3 Ml Neb Administered 09/21/19 13:51 Dose 3 ml IH .STK-MED ONE Methylprednisolone Sodium Succinate 125 mg 09/21/19 13:46 09/21/19 14:04 Solu-Medrol 125 Mg IV 09/21/19 13:47 125 mg STAT ONE Administration Methylprednisolone Sodium Succinate Confirm 09/21/19 14:03 Solu-Medrol 125 Mg Administered 09/21/19 14:04 Dose 125 mg .ROUTE .STK-MED ONE Lab/Rad Data: Laboratory Results 09/21/19 Range/Units 14:00 Influenza Type A Ag NEGATIVE (NEGATIVE) Influenza Type B Ag NEGATIVE (NEGATIVE) RSV (PCR) NEGATIVE (Negative) - Progress Progress: improved Air Movement: fair Progress Note: 09/21/19 15:19 Patient reassessed. Patient states he feels much better. Wheezing is almost completely resolved. Patient in no acute distress. Resting tachycardia observed. Heart rate approximately 1 20-1 30. This may be partially due to the albuterol however her heart rate is too high for discharge. Patient states that she has to leave as she is starting her work shift and does not want to miss work. Risk and benefits of leaving without treatment or further evaluation of the tachycardia discussed. Patient understands and states she has to go to work. An AMA form completed. Patient requested albuterol solution prescription. A prescription for a short course of prednisone was submitted to her pharmacy. Blood Culture(s) Obtained: No Antibiotics given: No Counseled pt/family regarding: lab results, diagnosis, need for follow-up, rad results, smoking cessation - Departure Departure Disposition: Home, AMA Clinical Impression: Asthma, Tachycardia Condition: Stable Critical Care Time: No Referrals: LARRY JOHNS DO [Primary Care Provider] - Additional Instructions: Discharge/Care Plan MICAH THOMPSON was seen on 09/21/19 in the Emergency Room. The patient was counseled regarding Diagnosis,Lab results, Imaging studies, need for follow up and when to return to the Emergency Room. Prescriptions given: Discharge Note I have spoken with the patient and/or caregivers. I have explained the patient' s condition, diagnosis and treatment plan based on the information available to me at this time. I have answered the patient's and/or caregiver's questions and addressed any concerns. The patient and/or caregivers have as good understanding of the patient's diagnosis, condition and treatment plan as can be expected at this point. The vital signs have been stable. The patient's condition is stable and appropriate for discharge from the emergency department. The patient will pursue further outpatient evaluation with the primary care physician or other designated or consulting physician as outlined in the discharge instructions. The patient and/or caregivers are agreeable to this plan of care and follow-up instructions have been explained in detail. The patient and/or caregivers have received these instruction. The patient/and or caregivers are aware that any significant change in condition or worsening of symptoms should prompt an immediate return to this or the closest emergency department or call 911. Prescriptions: Prednisone 20 mg [Deltasone 20 mg] 40 mg PO DAILY 3 Days #6 tablet
== END 2019-09-21 15:21 | disposition home or self-care (01) ==
LOC: ED 13:42
DX: J45.909 Unspecified asthma, uncomplicated (principal); R00.0 Tachycardia, unspecified; Z79.899 Other long term (current) drug therapy
CPT/HCPCS: 36000; 71045; 87631; 93041; 94150; 94640; 96374; 99284; J2930; A9270-GY

== ENCOUNTER 2020-03-06 17:33 | Emergency (ER) | payer BC, OTHER ==
[2020-03-06 18:12] LABS: Appearance CLOUDY (CLEAR); Bacteria MANY /HPF (NEGATIVE); Bilirubin NEGATIVE (NEGATIVE); Blood LARGE Ery/ul (0-5); Epithelial Cells RARE /HPF (FEW); Glucose NEGATIVE (NEGATIVE); Ketones NEGATIVE (NEGATIVE); Leukocyte Esterase MODERATE (NEGATIVE); Mucus SLIGHT /HPF (NEGATIVE); Nitrite POSITIVE (NEGATIVE); Protein,Urine Dip 100 (Negative); RBC >101 /HPF (0-2); Specific Gravity 1.025 (1.005-1.025); Urobilinogen NEGATIVE mg/dL (0-1); WBC >100 /HPF (0-5)
[2020-03-06] MEDS ORDERED: Macrobid 100MG Capsule PO ONE (18:43)
[2020-03-06] MEDS ORDERED: Macrobid 100MG Capsule ONE (18:45)
[2020-03-06 18:47] VITALS: BP 126/81; PULSE 84
[2020-03-06 18:48] VITALS: O2SAT 100
--- NOTE | 2020-03-06 18:48 | ERPHSYRPT ---
- History of Present Illness Time Seen by Provider: 03/06/20 17:55 Source: patient Patient Subjective Stated Complaint: UTI symptoms Triage Nursing Assessment: Patient ambulated back to ED and transferred self to bed. Patient A+O X 3. Patient's skin pink, warm and dry. Patient complains of urgency and frequency upon urination since yesterday. Patient states she noticed blood in her urine today. Patient denies pain or discomfort currently but states when she voids it's painful. Physician History: Patient is a 24-year-old female presents to our ED with complaints of dysuria, increased urinary frequency and urgency. Patient admits to history of UTI. Symptoms are similar. No fever. No back pain. Symptoms started 2 days ago's. Symptoms have been constant. Symptoms are mild to moderate in intensity. No vaginal discharge. No specific worsening improving factors. Patient is otherwise healthy. She voices no other complaints at this time. Patient declined pain medication. Timing/Duration: day(s) (Is ago.) Activites at Onset: none Quality: burning Onset Location: suprapubic Pain Radiation: none Severity of Pain-Max: moderate Severity of Pain-Current: mild Sexual intercourse history: non-contributory Modifying Factors: Improves With: nothing Associated Symptoms: denies symptoms, urinary frequency, No abdominal pain, No fever, No nausea, No dysuria, No nocturia, No polyuria, No loss of bladder control, No vaginal discharge Allergies/Adverse Reactions: No Known Drug Allergies Allergy (Verified 03/06/20 17:48) Home Medications: Escitalopram Oxalate [Lexapro] 20 mg PO DAILY 06/18/19 [History] Dextroamphetamine/Amphetamine [Dextroamp-Amphetamin 20 mg Tab] 40 mg PO DAILY 09/21/19 [History] Loratadine 10 mg [Claritin 10 mg] 10 mg PO DAILY 09/21/19 [History] Hx Tetanus, Diphtheria Vaccination/Date Given: Yes Hx Influenza Vaccination/Date Given: No Hx Pneumococcal Vaccination/Date Given: No Travel Risk - International Travel Have you traveled outside of the country in past 3 weeks: No - Coronavirus Screening Close contact with a COVID-19 positive Pt in past 14-21 Days: No - Review of Systems Constitutional: No Symptoms, No Fever, No Chills Eyes: No Symptoms Ears, Nose, & Throat: No Symptoms Respiratory: No Symptoms, No Cough, No Dyspnea Cardiac: No Symptoms, No Chest Pain, No Edema, No Syncope Abdominal/Gastrointestinal: No Symptoms, No Abdominal Pain, No Nausea, No Vomiting, No Diarrhea Genitourinary Symptoms: No Symptoms, No Dysuria Musculoskeletal: No Symptoms, No Back Pain, No Neck Pain Skin: No Symptoms, No Rash Neurological: No Symptoms, No Dizziness, No Focal Weakness, No Sensory Changes Psychological: No Symptoms Endocrine: No Symptoms Hematologic/Lymphatic: No Symptoms Immunological/Allergic: No Symptoms All Other Systems: Reviewed and Negative - Past Medical History Pertinent Past Medical History: Yes Neurological History: No Pertinent History ENT History: No Pertinent History Cardiac History: No Pertinent History Respiratory History: Asthma Endocrine Medical History: No Pertinent History Musculoskeletal History: No Pertinent History GI Medical History: No Pertinent History History: No Pertinent History Psycho-Social History: Anxiety, Attention Deficit Disorder Female Reproductive Disorders: No Pertinent History Other Medical History: Seasonal allergies - Past Surgical History Past Surgical History: Yes Neuro Surgical History: No Pertinent History Cardiac: No Pertinent History Respiratory: No Pertinent History Gastrointestinal: No Pertinent History Genitourinary: No Pertinent History Musculoskeletal: No Pertinent History Female Surgical History: No Pertinent History Other Surgical History: oral - Social History Smoking Status: Current some day smoker How long have you smoked: years Exposure to second hand smoke: Yes Drug Use: marijuana Patient Lives Alone: No - Female History Hx Last Menstrual Period: Depo Hx Now: No - Nursing Vital Signs Nursing Vital Signs: Initial Vital Signs Temperature 98.2 F 03/06/20 17:48 Pulse Rate 113 H 03/06/20 17:48 Respiratory Rate 18 03/06/20 17:48 Blood Pressure 154/87 03/06/20 17:48 O2 Sat by Pulse Oximetry 100 03/06/20 17:48 Pain Scale Pain Intensity 0 - Physical Exam General Appearance: no apparent distress, alert Eye Exam: PERRL/EOMI, eyes nml inspection Ears, Nose, Throat Exam: normal ENT inspection, TMs normal, pharynx normal, moist mucous membranes Neck Exam: normal inspection, non-tender, supple, full range of motion Respiratory Exam: normal breath sounds, lungs clear, No respiratory distress Cardiovascular Exam: regular rate/rhythm, normal heart sounds, normal peripheral pulses Gastrointestinal/Abdomen Exam: soft, No tenderness, No mass Back Exam: normal inspection, normal range of motion, No CVA tenderness, No vertebral tenderness Extremity Exam: normal inspection, normal range of motion, pelvis stable Neurologic Exam: alert, oriented x 3, cooperative, pediatric physical therapy assistant II-XII nml as tested, normal mood/affect, sensation nml, No motor deficits Skin Exam: normal color, warm, dry Lymphatic Exam: No adenopathy SpO2 Interpretation: normal SpO2: 100 O2 Delivery: Room Air - Course Nursing assessment & vital signs reviewed: Yes Ordered Tests: Active Orders 24 hr Category Date Time Status CULTURE,URINE Stat Lab 03/06/20 17:43 Received HCG,QUALITATIVE URINE Stat Lab 03/06/20 17:43 Completed UA W/RFX UR CULTURE Stat Lab 03/06/20 17:43 Completed Lab/Rad Data: Laboratory Results 03/06/20 03/06/20 Range/Units 17:43 17:43 Urine Color YELLOW (YELLOW) Urine Appearance CLOUDY (CLEAR) Urine pH 5.0 (5-6) Ur Specific [place] [employer] 1.025 (1.005-1.025) Urine Protein 100 (Negative) Urine Ketones NEGATIVE (NEGATIVE) Urine Blood LARGE (0-5) [place]/ul Urine Nitrite POSITIVE (NEGATIVE) Urine Bilirubin NEGATIVE (NEGATIVE) Urine Urobilinogen NEGATIVE (0-1) mg/dL Ur Leukocyte Esterase MODERATE (NEGATIVE) Urine WBC (Auto) >100 (0-5) /HPF Urine RBC (Auto) >101 (0-2) /HPF U Epithel Cells (Auto) RARE (FEW) /HPF Urine Bacteria (Auto) MANY (NEGATIVE) /HPF Urine Mucus (Auto) SLIGHT (NEGATIVE) /HPF Urine Culture Reflexed YES (NO) Urine Glucose NEGATIVE (NEGATIVE) mg/dL Urine HCG, Qual NEGATIVE (Negative) - Progress Progress: improved Air Movement: good Progress Note: 03/06/20 18:50 Patient reassessed. She feels well. UA significant for UTI. Patient declined pain medication. Work note provided. Patient received a dose of Macrobid in our ED. A prescription for the same was provided to her. Patient agrees to follow-up with her primary care doctor within 48 hours for evaluation. Patient voices no complaints or concerns at this time. negative. 03/06/20 18:51 Blood Culture(s) Obtained: No Antibiotics given: Yes Counseled pt/family regarding: diagnosis, need for follow-up - Departure Departure Disposition: Home Clinical Impression: UTI (urinary tract infection) Condition: Stable Critical Care Time: No Referrals: LARRY JOHNS DO [Primary Care Provider] - Additional Instructions: Discharge/Care Plan JAYCHANTELLE D was seen on 03/06/20 in the Emergency Room. The patient was counseled regarding Diagnosis,Lab results, Imaging studies, need for follow up and when to return to the Emergency Room. Prescriptions given: Discharge Note I have spoken with the patient and/or caregivers. I have explained the patient's condition, diagnosis and treatment plan based on the information available to me at this time. I have answered the patient's and/or caregiver's questions and addressed any concerns. The patient and/or caregivers have as good understanding of the patient's diagnosis, condition and treatment plan as can be expected at this point. The vital signs have been stable. The patient's condition is stable and appropriate for discharge from the emergency department. The patient will pursue further outpatient evaluation with the primary care physician or other designated or consulting physician as outlined in the discharge instructions. The patient and/or caregivers are agreeable to this plan of care and follow-up instructions have been explained in detail. The patient and/or caregivers have received these instruction. The patient/and or caregivers are aware that any significant change in condition or worsening of symptoms should prompt an immediate return to this or the closest emergency department or call 911. Forms: Work/School Release Form
== END 2020-03-06 18:54 | disposition home or self-care (01) ==
LOC: ED 17:33
DX: N39.0 Urinary tract infection, site not specified (principal)
CPT/HCPCS: 81001; 84703; 87077; 87086; 87186; 99283; A9270-GY

== ENCOUNTER 2020-10-05 10:59 | Emergency (ER) | payer OTHER ==
[2020-10-05] MEDS ORDERED: DUONEB 0.5-3 MG/3 ml Neb IH ONE (11:03)
[2020-10-05] MEDS: DUONEB 0.5-3 MG/3 ml Neb IH ONE (11:05)
[2020-10-05] MEDS ORDERED: solu-MEDROL 125 MG ONE (11:06)
[2020-10-05] MEDS: solu-MEDROL 125 MG IV ONE (11:09)
[2020-10-05] MEDS ORDERED: PROVENTIL 2.5 MG/3 ML NEB IH ONE (11:10)
--- NOTE | 2020-10-05 11:11 | ERPHSYRPT ---
- History of Present Illness Time Seen by Provider: 10/05/20 11:11 Source: patient Exam Limitations: clinical condition Patient Subjective Stated Complaint: Pt c/o of an asthma attack since around 0400 this am Triage Nursing Assessment: Pt was brought to the ER by a friend, tachycardic, denies pain, hx of asthma, walked into ER by self, took treatment at home approx 1 hour before arriving, ins & exp wheezing throughout Physician History: This is a 25-year-old female who has a history of asthma and is on Pulmicort inhaler, Singulair, and albuterol inhaler/nebulizer. At approximately 4:00 this morning patient awoke wheezing and short of breath. Patient denies chest pain. She has not had a fever. She has no abdominal pain. She denies nausea vomiting and diarrhea. She has used her nebulizer today but she was not improving. Timing/Duration: today, sudden, worse Activities at Onset: none Severity of Dyspnea-Max: moderate Severity of Dyspnea-Current: moderate Possible Cause: occasional episodes Modifying Factors: Improves With: coughing Associated Symptoms: cough, wheezing Allergies/Adverse Reactions: No Known Drug Allergies Allergy (Verified 10/05/20 11:08) Home Medications: Escitalopram Oxalate [Lexapro] 20 mg PO DAILY 06/18/19 [History] Dextroamphetamine/Amphetamine [Dextroamp-Amphetamin 20 mg Tab] 40 mg PO DAILY 09/21/19 [History] Loratadine 10 mg [Claritin 10 mg] 10 mg PO DAILY 09/21/19 [History] Albuterol Sulfate [Albuterol Sulfate Hfa] 2 inh PO Q4H 10/05/20 [History] Budesonide [Pulmicort Flexhaler] 1 inh PO UD 10/05/20 [History] Montelukast Sodium 10 mg [Singulair 10 MG] 10 mg PO DAILY 10/05/20 [History] Hx Tetanus, Diphtheria Vaccination/Date Given: Yes Hx Influenza Vaccination/Date Given: No Hx Pneumococcal Vaccination/Date Given: No Travel Risk - International Travel Have you traveled outside of the country in past 3 weeks: No - Coronavirus Screening Are you exhibiting any of the following symptoms?: No Close contact with a COVID-19 positive Pt in past 14-21 Days: No - Review of Systems Constitutional: No Symptoms Eyes: No Symptoms Ears, Nose, & Throat: No Symptoms Respiratory: Cough, Dyspnea, Wheezing Cardiac: No Symptoms Abdominal/Gastrointestinal: No Symptoms Genitourinary Symptoms: No Symptoms Musculoskeletal: No Symptoms Skin: No Symptoms Neurological: No Symptoms Psychological: No Symptoms Endocrine: No Symptoms Hematologic/Lymphatic: No Symptoms Immunological/Allergic: No Symptoms All Other Systems: Reviewed and Negative - Past Medical History Pertinent Past Medical History: Yes Neurological History: No Pertinent History ENT History: No Pertinent History Cardiac History: No Pertinent History Respiratory History: Asthma Endocrine Medical History: No Pertinent History Musculoskeletal History: No Pertinent History GI Medical History: No Pertinent History History: No Pertinent History Psycho-Social History: Anxiety, Attention Deficit Disorder Female Reproductive Disorders: No Pertinent History Other Medical History: Seasonal allergies - Past Surgical History Past Surgical History: Yes Neuro Surgical History: No Pertinent History Cardiac: No Pertinent History Respiratory: No Pertinent History Gastrointestinal: No Pertinent History Genitourinary: No Pertinent History Musculoskeletal: No Pertinent History Female Surgical History: No Pertinent History Other Surgical History: oral - Social History Smoking Status: Current some day smoker How long have you smoked: years Exposure to second hand smoke: No Drug Use: marijuana Patient Lives Alone: No - Female History Hx Now: No (depo) - Nursing Vital Signs Nursing Vital Signs: Initial Vital Signs Temperature 98.2 F 10/05/20 11:00 Pulse Rate 121 H 10/05/20 11:00 Blood Pressure 134/93 10/05/20 11:00 O2 Sat by Pulse Oximetry 99 10/05/20 11:00 Pain Scale Pain Intensity 0 - Physical Exam General Appearance: mild distress, alert, anxiety Eye Exam: PERRL/EOMI, eyes nml inspection Ears, Nose, Throat Exam: hearing grossly normal, normal ENT inspection, normal pharynx Neck Exam: normal inspection, non-tender, supple, full range of motion Respiratory Exam: lungs clear, respiratory distress (Mild), airway intact, wheezing, No chest tenderness Cardiovascular/Chest Exam: tachycardia Abdominal/Gastrointestinal Exam: soft, normal bowel sounds, No tenderness Rectal Exam: not done Extremity Exam: non-tender, normal range of motion, normal inspection Skin Exam: normal color, warm, dry Lymphatic Exam: No adenopathy SpO2 Interpretation: normal SpO2: 99 O2 Delivery: Room Air - Course Nursing assessment & vital signs reviewed: Yes Ordered Tests: Active Orders 24 hr Category Date Time Status Respiratory Therapy Assessment DAILY RT 10/05/20 11:07 Active Medication Summary Discontinued Medications Generic Name Dose Route Start Last Admin Trade Name Matthew CAPONE Reason Stop Dose Admin Albuterol Sulfate Confirm 10/05/20 11:10 Proventil 2.5 Mg/3 Ml Neb Administered 10/05/20 11:11 Dose 2.5 mg IH .STK-MED ONE Albuterol Sulfate 2.5 mg 10/05/20 11:12 Proventil 2.5 Mg/3 Ml Neb IH 10/05/20 11:13 STAT ONE Albuterol/Ipratropium Confirm 10/05/20 11:03 Duoneb 0.5-3 Mg/3 Ml Neb Administered 10/05/20 11:04 Dose 3 ml IH .STK-MED ONE Albuterol/Ipratropium 3 ml 10/05/20 11:07 Duoneb 0.5-3 Mg/3 Ml Neb IH 10/05/20 11:08 STAT ONE Methylprednisolone Sodium Succinate 125 mg 10/05/20 11:07 10/05/20 11:09 Solu-Medrol 125 Mg IV 10/05/20 11:08 125 mg STAT ONE Administration Methylprednisolone Sodium Succinate Confirm 10/05/20 11:06 Solu-Medrol 125 Mg Administered 10/05/20 11:07 Dose 125 mg .ROUTE .STK-MED ONE - Progress Progress: improved, re-examined Air Movement: fair Progress Note: 10/05/20 11:26 Clinically, the patient is improving. There is more air movement. Blood Culture(s) Obtained: No Antibiotics given: No Counseled pt/family regarding: diagnosis, need for follow-up - Departure Departure Disposition: Extended Care Facility Clinical Impression: Acute exacerbation of extrinsic asthma Condition: Stable Critical Care Time: No Referrals: LARRY JOHNS DO [Primary Care Provider] - Additional Instructions: Drink plenty of fluids. Use your nebulizer every 4 hours while awake. Additionally continue your other inhalers as prescribed. Return to the emergency department if symptoms recur/worsen Prescriptions: Prednisone 10 mg [Deltasone 10 mg] 10 mg PO TID #12 tablet Azithromycin 250 mg [Zithromax 250 MG TABLET] 250 mg PO ZPACK #6 tablet
[2020-10-05] MEDS: PROVENTIL 2.5 MG/3 ML NEB IH ONE (11:12)
[2020-10-05 12:07] VITALS: BP 129/89; PULSE 108; O2SAT 98
[2020-10-05] MEDS ORDERED: ZOFRAN ODT 4 MG ONE (16:39)
== END 2020-10-05 12:16 | disposition home or self-care (01) ==
LOC: ED 10:59
DX: J45.909 Unspecified asthma, uncomplicated (principal)
CPT/HCPCS: 36000; 94640; 96374; 99284; J2930; J7609; Q0162; A9270-GY

== ENCOUNTER 2020-10-05 14:13 | Inpatient (IN) | payer OTHER ==
[2020-10-05] MEDS ORDERED: Sodium Chloride 3 ML UD NEBULES IH ONE (14:17)
[2020-10-05] MEDS ORDERED: Xopenex 1.25 MG/0.5 ML UD NEBULE IH ONE ×2 (14:17→14:33)
--- NOTE | 2020-10-05 14:29 | ERPHSYRPT ---
- History of Present Illness Time Seen by Provider: 10/05/20 14:20 Source: patient Exam Limitations: no limitations Patient Subjective Stated Complaint: pt here for increase sob she was dc from er about an hour ago, she states she suddenly got worse,,pt dsoes have pets at home Triage Nursing Assessment: pt alert, walked in, resp labored, skin w/d/normal, diminished BS, wheezes heard Physician History: This is a 25-year-old female who has known history of asthma and was just recently discharged from the emergency department after an exacerbation of her asthma. At the time of her discharge approximately 2 to 3 hours ago, her heart rate was approximately 105-106 beats per minute. Her room air oxygenation level was 99 to 100% on room air. Symptomatically, she was comfortable and wanted to be discharged to home. She was discharged home with a prescription for albuterol nebulizer solution, prednisone, and azithromycin. Once she was home she began to have recurrent symptoms. She arrived with a heart rate in the 130s room air oxygenation of 96%, and she is wheezing. Activities at Onset: none Severity of Dyspnea-Max: moderate Severity of Dyspnea-Current: moderate Possible Cause: occasional episodes Modifying Factors: Improves With: coughing Associated Symptoms: anxiety, cough, wheezing Allergies/Adverse Reactions: No Known Drug Allergies Allergy (Verified 10/05/20 14:21) Home Medications: Escitalopram Oxalate [Lexapro] 20 mg PO DAILY 06/18/19 [History] Dextroamphetamine/Amphetamine [Dextroamp-Amphetamin 20 mg Tab] 40 mg PO DAILY 09/21/19 [History] Loratadine 10 mg [Claritin 10 mg] 10 mg PO DAILY 09/21/19 [History] Albuterol Sulfate [Albuterol Sulfate Hfa] 2 inh PO Q4H 10/05/20 [History] Budesonide [Pulmicort Flexhaler] 1 inh PO UD 10/05/20 [History] Montelukast Sodium 10 mg [Singulair 10 MG] 10 mg PO DAILY 10/05/20 [History] Hx Tetanus, Diphtheria Vaccination/Date Given: Yes Hx Influenza Vaccination/Date Given: No Hx Pneumococcal Vaccination/Date Given: No Immunizations Up to Date: Yes Travel Risk - International Travel Have you traveled outside of the country in past 3 weeks: No - Coronavirus Screening Are you exhibiting any of the following symptoms?: No Close contact with a COVID-19 positive Pt in past 14-21 Days: No - Review of Systems Constitutional: No Symptoms Eyes: No Symptoms Ears, Nose, & Throat: No Symptoms Respiratory: Cough, Dyspnea, Wheezing Cardiac: No Symptoms Abdominal/Gastrointestinal: No Symptoms Genitourinary Symptoms: No Symptoms Musculoskeletal: No Symptoms Skin: No Symptoms Neurological: No Symptoms Psychological: No Symptoms Endocrine: No Symptoms Hematologic/Lymphatic: No Symptoms Immunological/Allergic: No Symptoms All Other Systems: Reviewed and Negative - Past Medical History Pertinent Past Medical History: Yes Neurological History: No Pertinent History ENT History: No Pertinent History Cardiac History: No Pertinent History Respiratory History: Asthma Endocrine Medical History: No Pertinent History Musculoskeletal History: No Pertinent History GI Medical History: No Pertinent History History: No Pertinent History Psycho-Social History: Anxiety, Attention Deficit Disorder Female Reproductive Disorders: No Pertinent History Other Medical History: Seasonal allergies - Past Surgical History Past Surgical History: Yes Neuro Surgical History: No Pertinent History Cardiac: No Pertinent History Respiratory: No Pertinent History Gastrointestinal: No Pertinent History Genitourinary: No Pertinent History Musculoskeletal: No Pertinent History Female Surgical History: No Pertinent History Other Surgical History: oral - Social History Smoking Status: Current some day smoker How long have you smoked: years Exposure to second hand smoke: No Drug Use: marijuana Patient Lives Alone: No - Female History Hx Last Menstrual Period: unsure Hx Now: No - Nursing Vital Signs Nursing Vital Signs: Initial Vital Signs Temperature 98.2 F 10/05/20 14:14 Pulse Rate 136 H 10/05/20 14:14 Respiratory Rate 28 H 10/05/20 14:14 Blood Pressure 164/121 10/05/20 14:14 O2 Sat by Pulse Oximetry 97 10/05/20 14:14 Pain Scale Pain Intensity 0 - Physical Exam General Appearance: moderate distress, alert, anxiety Eye Exam: PERRL/EOMI Ears, Nose, Throat Exam: hearing grossly normal Neck Exam: normal inspection, non-tender, supple, full range of motion Respiratory Exam: respiratory distress (Mild), airway intact, wheezing Cardiovascular/Chest Exam: tachycardia Abdominal/Gastrointestinal Exam: soft, normal bowel sounds, No tenderness Rectal Exam: not done Extremity Exam: non-tender, normal range of motion, normal inspection Neurologic Exam: alert, oriented x 3, cooperative, medicaid collection specialist II-XII nml as tested, normal mood/affect, nml cerebellar function, nml station & gait, sensation nml Skin Exam: normal color, dry Lymphatic Exam: No adenopathy SpO2 Interpretation: normal SpO2: 97 O2 Delivery: Room Air - Course Nursing assessment & vital signs reviewed: Yes EKG Interpreted by Me: RATE ([id number]), Sinus Tach, NORMAL AXIS, NORMAL INTERVALS, NORMAL QRS, NORMAL ST-T Ordered Tests: Active Orders 24 hr Category Date Time Status Senior Ui Ux Designer STAT Care 10/05/20 14:53 Active EKG-ER Only STAT Care 10/05/20 14:30 Active IV Insertion STAT Care 10/05/20 14:30 Active Pulse Oximetry (ED) STAT Care 10/05/20 14:30 Active CHEST 1 VIEW (PORTABLE) Stat Exams 10/05/20 14:30 Completed CHEST WITH CONTRAST [CT] Stat Exams 10/05/20 15:28 Taken CBC W DIFF Stat Lab 10/05/20 14:50 Completed CMP Stat Lab 10/05/20 14:50 Completed D-DIMER QUANTITATIVE Stat Lab 10/05/20 14:50 Completed INFLUENZA A+B BUFFY Stat Lab 10/05/20 14:50 Completed Lactic Acid Stat Lab 10/05/20 14:50 Completed Lactic Acid Stat Lab 10/05/20 16:58 Received MAGNESIUM Stat Lab 10/05/20 14:50 Completed NT PRO BNP Stat Lab 10/05/20 14:50 Completed TROPONIN Q3H Lab 10/05/20 14:30 Completed TROPONIN Q3H Lab 10/06/20 02:30 Ordered Respiratory Therapy Assessment DAILY RT 10/05/20 14:37 Active Transfer Order Routine Transfer 10/05/20 Ordered Medication Summary Generic Name Dose Route Start Last Admin Trade Name Freq PRN Reason Stop Dose Admin Sodium Chloride 1,000 mls @ 999 mls/hr 10/05/20 17:58 10/05/20 18:00 Sodium Chloride 0.9% 1000 Ml IV 10/05/20 18:58 999 mls/hr .Q1H1M STA Administration Meropenem 1 g/ Sodium Chloride 100 mls @ 200 mls/hr 10/05/20 17:58 IV 10/05/20 18:27 STAT ONE Discontinued Medications Generic Name Dose Route Start Last Admin Trade Name Freq PRN Reason Stop Dose Admin Diphenhydramine HCl 25 mg 10/05/20 14:45 10/05/20 14:59 Benadryl 50 Mg/Ml IV 10/05/20 14:46 25 mg STAT ONE Administration Diphenhydramine HCl Confirm 10/05/20 14:54 Benadryl 50 Mg/Ml Administered 10/05/20 14:55 Dose 50 mg .ROUTE .STK-MED ONE Famotidine 40 mg 10/05/20 14:45 10/05/20 15:00 Pepcid 20 Mg Vial IV 10/05/20 14:46 40 mg STAT ONE Administration Famotidine Confirm 10/05/20 14:54 Pepcid 20 Mg Vial Administered 10/05/20 14:55 Dose 40 mg IV .STK-MED ONE Sodium Chloride 1,000 mls @ 999 mls/hr 10/05/20 15:06 10/05/20 16:09 Sodium Chloride 0.9% 1000 Ml IV 10/05/20 16:06 Infused .Q1H1M STA Infusion Sodium Chloride Confirm 10/05/20 15:06 Sodium Chloride 0.9% 1000 Ml Administered 10/05/20 15:07 Dose 1,000 mls @ ud .ROUTE .STK-MED ONE Sodium Chloride Confirm 10/05/20 17:59 Sodium Chloride 0.9% 1000 Ml Administered 10/05/20 18:00 Dose 1,000 mls @ ud .ROUTE .STK-MED ONE Levalbuterol HCl Confirm 10/05/20 14:17 Xopenex 1.25 Mg/0.5 Ml Ud Nebule Administered 10/05/20 14:18 Dose 1.25 mg IH .STK-MED ONE Levalbuterol HCl 1.25 mg 10/05/20 14:33 10/05/20 14:20 Xopenex 1.25 Mg/0.5 Ml Ud Nebule IH 10/05/20 14:34 1.25 mg STAT ONE Administration Methylprednisolone Sodium Succinate 125 mg 10/05/20 14:30 10/05/20 14:59 Solu-Medrol 125 Mg IV 10/05/20 14:31 125 mg STAT ONE Administration Methylprednisolone Sodium Succinate Confirm 10/05/20 14:55 Solu-Medrol 125 Mg Administered 10/05/20 14:56 Dose 125 mg .ROUTE .STK-MED ONE Ondansetron HCl 4 mg 10/05/20 16:37 10/05/20 16:39 Zofran Odt 4 Mg PO 10/05/20 16:38 4 mg STAT ONE Administration Oseltamivir Phosphate 75 mg 10/05/20 15:29 10/05/20 15:33 Tamiflu 75mg Capsule PO 10/05/20 15:30 75 mg STAT ONE Administration Oseltamivir Phosphate Confirm 10/05/20 15:32 Tamiflu 75mg Capsule Administered 10/05/20 15:33 Dose 75 mg PO .STK-MED ONE Sodium Chloride Confirm 10/05/20 14:17 Sodium Chloride 3 Ml Ud Nebules Administered 10/05/20 14:18 Dose 3 ml IH .STK-MED ONE Lab/Rad Data: Laboratory Result Diagrams 10/05/20 14:50 10/05/20 14:50 Laboratory Results 10/05/20 10/05/20 10/05/20 Range/Units 17:07 14:50 14:50 WBC (4.0-10.5) K/mm3 RBC (4.1-5.4) M/mm3 Hgb (12.0-16.0) gm/dl Hct (35-47) % MCV (78-100) fl MCH (26-32) pg MCHC (32-36) g/dl RDW (11.5-14.0) % Plt Count (150-450) K/mm3 MPV (7.5-11.0) fl Gran % (36.0-66.0) % Eos # (Auto) (0-0.5) Absolute Lymphs (auto) (1.0-4.6) Absolute Monos (auto) (0.0-1.3) Lymphocytes % (24.0-44.0) % Monocytes % (0.0-12.0) % Eosinophils % (0.00-5.0) % Basophils % (0.0-0.4) % Absolute Granulocytes (1.4-6.9) Basophils # (0-0.4) D-Dimer 543 H* (215-500) ng/mL Sodium (137-145) mmol/L Potassium (3.5-5.1) mmol/L Chloride (98-107) mmol/L Carbon Dioxide (22-30) mmol/L Anion Gap (5-15) MEQ/L BUN (7-17) mg/dL Creatinine (0.52-1.04) mg/dL Estimated GFR ML/MIN Glucose (74-106) mg/dL Lactic Acid (0.4-2.0) Calcium (8.4-10.2) mg/dL Magnesium (1.6-2.3) mg/dL Total Bilirubin (0.2-1.3) mg/dL AST (14-36) U/L ALT (0-35) U/L Alkaline Phosphatase (38-126) U/L Troponin I (0.000-0.034) ng/mL NT-Pro-B Natriuret Pep (0-450) pg/mL Serum Total Protein (6.3-8.2) g/dL Albumin (3.5-5.0) g/dL Influenza Type A Ag NEGATIVE NEGATIVE (NEGATIVE) Influenza Type B Ag NEGATIVE POSITIVE (NEGATIVE) RSV (PCR) NEGATIVE (Negative) SARS-CoV-2 (PCR) NEGATIVE (NEGATIVE) 10/05/20 10/05/20 10/05/20 Range/Units 14:50 14:50 14:50 WBC 12.1 H (4.0-10.5) K/mm3 RBC 5.17 (4.1-5.4) M/mm3 Hgb 14.4 (12.0-16.0) gm/dl Hct 44.0 (35-47) % MCV 85.1 (78-100) fl MCH 27.9 (26-32) pg MCHC 32.7 (32-36) g/dl RDW 13.5 (11.5-14.0) % Plt Count 369 (150-450) K/mm3 MPV 9.0 (7.5-11.0) fl Gran % 92.0 H (36.0-66.0) % Eos # (Auto) 0.08 (0-0.5) Absolute Lymphs (auto) 0.72 L (1.0-4.6) Absolute Monos (auto) 0.15 (0.0-1.3) Lymphocytes % 5.9 L (24.0-44.0) % Monocytes % 1.2 (0.0-12.0) % Eosinophils % 0.7 (0.00-5.0) % Basophils % 0.2 (0.0-0.4) % Absolute Granulocytes 11.15 H (1.4-6.9) Basophils # 0.02 (0-0.4) D-Dimer (215-500) ng/mL Sodium 141 (137-145) mmol/L Potassium 3.5 (3.5-5.1) mmol/L Chloride 105 (98-107) mmol/L Carbon Dioxide 20 L (22-30) mmol/L Anion Gap 19.4 H (5-15) MEQ/L BUN 8 (7-17) mg/dL Creatinine 0.68 (0.52-1.04) mg/dL Estimated GFR > 60.0 ML/MIN Glucose 167 H (74-106) mg/dL Lactic Acid 4.7 H (0.4-2.0) Calcium 9.8 (8.4-10.2) mg/dL Magnesium 1.9 (1.6-2.3) mg/dL Total Bilirubin 0.20 (0.2-1.3) mg/dL AST 31 (14-36) U/L ALT 36 H (0-35) U/L Alkaline Phosphatase 83 (38-126) U/L Troponin I (0.000-0.034) ng/mL NT-Pro-B Natriuret Pep 27.7 (0-450) pg/mL Serum Total Protein 7.8 (6.3-8.2) g/dL Albumin 4.7 (3.5-5.0) g/dL Influenza Type A Ag (NEGATIVE) Influenza Type B Ag (NEGATIVE) RSV (PCR) (Negative) SARS-CoV-2 (PCR) (NEGATIVE) 10/05/20 Range/Units 14:30 WBC (4.0-10.5) K/mm3 RBC (4.1-5.4) M/mm3 Hgb (12.0-16.0) gm/dl Hct (35-47) % MCV (78-100) fl MCH (26-32) pg MCHC (32-36) g/dl RDW (11.5-14.0) % Plt Count (150-450) K/mm3 MPV (7.5-11.0) fl Gran % (36.0-66.0) % Eos # (Auto) (0-0.5) Absolute Lymphs (auto) (1.0-4.6) Absolute Monos (auto) (0.0-1.3) Lymphocytes % (24.0-44.0) % Monocytes % (0.0-12.0) % Eosinophils % (0.00-5.0) % Basophils % (0.0-0.4) % Absolute Granulocytes (1.4-6.9) Basophils # (0-0.4) D-Dimer (215-500) ng/mL Sodium (137-145) mmol/L Potassium (3.5-5.1) mmol/L Chloride (98-107) mmol/L Carbon Dioxide (22-30) mmol/L Anion Gap (5-15) MEQ/L BUN (7-17) mg/dL Creatinine (0.52-1.04) mg/dL Estimated GFR ML/MIN Glucose (74-106) mg/dL Lactic Acid (0.4-2.0) Calcium (8.4-10.2) mg/dL Magnesium (1.6-2.3) mg/dL Total Bilirubin (0.2-1.3) mg/dL AST (14-36) U/L ALT (0-35) U/L Alkaline Phosphatase (38-126) U/L Troponin I < 0.012 (0.000-0.034) ng/mL NT-Pro-B Natriuret Pep (0-450) pg/mL Serum Total Protein (6.3-8.2) g/dL Albumin (3.5-5.0) g/dL Influenza Type A Ag (NEGATIVE) Influenza Type B Ag (NEGATIVE) RSV (PCR) (Negative) SARS-CoV-2 (PCR) (NEGATIVE) - Progress Progress: improved, re-examined Air Movement: fair Progress Note: 10/05/20 14:46 And further interviewing patient, it turns out that she has pet allergies. She lives in an apartment that has an upstairs and downstairs. The pets are not allowed upstairs where she primarily lives. After she was discharged from the emergency department the first time today, she was downstairs cooking when the pets came into the kitchen where she was. She thought maybe this might have prompted a recurrence. 10/05/20 16:48 Chest x-ray shows no acute cardiopulmonary process. CAT scan of the chest with contrast shows no gross evidence of any pulmonary emboli. No other cardiopulmonary processes evident. Medical decision making: I spoke with Dr. Burrows who is covering for Dr. Lake. This is one of her patients. This patient failed outpatient therapy it appears as though she has influenza B respiratory infection. She will benefit from placing the patient in observation, respiratory therapy treatments, steroids and Tamiflu. We will keep her in a monitored setting. We will do a rapid Covid test to determine if the patient can go to regular floor or will need Covid bed/room placement. 10/05/20 18:02 Decision making: The rapid Covid test is also done with an RSV and influenza a and B testing. This test shows influenza a and B both being negative as well as negative RSV and the rapid Covid test as negative. I will provide the patient with another liter of fluid since her lactic acid level increased from 4.7-6. I am not sure how accurate that is. We will also provide the patient with intravenous fluids, Tamiflu and meropenem antibiotic until patient picture is clinically sorted out on the floor.. Blood Culture(s) Obtained: No Antibiotics given: No Counseled pt/family regarding: lab results, diagnosis, rad results - Departure Departure Disposition: Observation Clinical Impression: Influenza B, Bronchitis, Leukocytosis, Lactic acid acidosis Condition: Stable Critical Care Time: No Referrals: LARRY LAKE DO [Primary Care Provider] -
[2020-10-05] MEDS ORDERED: solu-MEDROL 125 MG IV ONE (14:30)
[2020-10-05] MEDS ORDERED: BENADRYL 50 MG/ML IV ONE (14:45)
[2020-10-05] MEDS ORDERED: Pepcid 20 MG VIAL IV ONE ×2 (14:45→14:54)
[2020-10-05] MEDS ORDERED: BENADRYL 50 MG/ML ONE (14:54)
[2020-10-05] MEDS ORDERED: solu-MEDROL 125 MG ONE (14:55)
[2020-10-05 15:01] LABS: Absolute Neutrophil Ct (ANC) 11.15 (1.4-6.9); BASOPHIL % 0.2 % (0.0-0.4); Basophil (Absolute #) 0.02 (0-0.4); Eosinophil % 0.7 % (0.00-5.0); Eosinophil (Absolute #) 0.08 (0-0.5); Hemoglobin 14.4 gm/dl (12.0-16.0); Lymphocyte (Absolute #) 0.72 (1.0-4.6); Lymphocytes % 5.9 % (24.0-44.0); Mean Cell Volume 85.1 fl (78-100); Mean Corpuscular Hemoglobin 27.9 pg (26-32); Mean Corpuscular Hgb Concent. 32.7 g/dl (32-36); Monocyte (Absolute #) 0.15 (0.0-1.3); Monocytes % 1.2 % (0.0-12.0); Platelet Count 369 K/mm3 (150-450); Red Blood Count 5.17 M/mm3 (4.1-5.4); Red Cell Distribution Width 13.5 % (11.5-14.0); White Blood Count 12.1 K/mm3 (4.0-10.5)
[2020-10-05] MEDS ORDERED: Sodium Chloride 0.9% 1000 ML 1,000 ML IV STA ×2 (15:06→17:58)
[2020-10-05] MEDS ORDERED: Sodium Chloride 0.9% 1000 ML 1,000 ML ONE ×2 (15:06→17:59)
--- NOTE | 2020-10-05 15:20 | XRAY ---
Indication: Short of breath and wheezing. Comparison: September 21, 2019. Portable chest again demonstrates normal heart, lungs, and bony thorax.
[2020-10-05 15:22] LABS: ALBUMIN 4.7 g/dL (3.5-5.0); ALKALINE PHOSPHATASE 83 U/L (38-126); ANION GAP 19.4 MEQ/L (5-15); BLOOD UREA NITROGEN 8 mg/dL (7-17); CHLORIDE 105 mmol/L (98-107); Calcium 9.8 mg/dL (8.4-10.2); Carbon Dioxide 20 mmol/L (22-30); Creatinine 1 0.68 mg/dL (0.52-1.04); EST GLOMERULAR FILTRATION RATE > 60.0 ML/MIN; Glucose 167 mg/dL (74-106); MAGNESIUM 1.9 mg/dL (1.6-2.3); NT PRO BNP 27.7 pg/mL (0-450); Potassium 3.5 mmol/L (3.5-5.1); SGOT/AST 31 U/L (14-36); SGPT/ALT 36 U/L (0-35); SODIUM 141 mmol/L (137-145); Total Protein 7.8 g/dL (6.3-8.2)
[2020-10-05 15:24] LABS: INFLUENZA B POSITIVE (NEGATIVE)
[2020-10-05] MEDS ORDERED: Tamiflu 75MG Capsule PO ONE ×2 (15:29→15:32)
[2020-10-05 16:08] LABS: INFLUENZA A NEGATIVE (NEGATIVE)
[2020-10-05] MEDS ORDERED: ZOFRAN ODT 4 MG PO ONE (16:37)
[2020-10-05 17:52] LABS: INFLUENZA A NEGATIVE (NEGATIVE); INFLUENZA B NEGATIVE (NEGATIVE); RESPIRATORY SYNCTIAL VIRUS NEGATIVE (Negative)
[2020-10-05] MEDS ORDERED: Merrem 1 GM 1 G in Sodium Chloride 100ML MINI-BAG PLUS 100 ML IV ONE (17:58)
[2020-10-05] MEDS ORDERED: Merrem 1 GM IV ONE (18:00)
[2020-10-05] MEDS ORDERED: Sodium Chloride 100ML MINI-BAG PLUS 100 ML IV ONE (18:01)
[2020-10-05] MEDS ORDERED: TYLENOL 325 MG PO PRN (18:30)
[2020-10-05] MEDS ORDERED: Zofran 4 MG/2 ML VIAL IV PRN (18:30)
[2020-10-05] MEDS ORDERED: FLUZONE QUAD 2020-2021 SYRINGE IM ONE (18:37)
[2020-10-05] MEDS ORDERED: DUONEB 0.5-3 MG/3 ml Neb IH ONE (19:42)
[2020-10-05] MEDS: DUONEB 0.5-3 MG/3 ml Neb IH SCH (19:56)
[2020-10-05] MEDS: solu-MEDROL 125 MG IV SCH (20:07)
[2020-10-05] MEDS: Sodium Chloride 0.9% 1000 ML 1,000 ML IV SCH (20:12)
[2020-10-05] MEDS: Tamiflu 75MG Capsule PO SCH (20:13)
[2020-10-05] MEDS: Ativan 2 MG/1 ML VIAL IV PRN (20:30)
[2020-10-05] MEDS ORDERED: Xopenex 1.25 MG/0.5 ML UD NEBULE IH PRN (22:04)
[2020-10-05] MEDS ORDERED: PATIENT OWN MEDICATION IH PRN (22:06)
--- NOTE | 2020-10-05 22:33 | XRAY ---
Indication: Short of breath. Elevated d-dimer. Multiple contiguous axial images obtained through the chest using 80 cc Isovue-370 contrast and PE protocol. Comparison: None There is good opacification of the pulmonary arteries. However mild respiration artifact limits evaluation of the more distal segmental branches. No central pulmonary embolus. Heart is not enlarged. Aorta is normal in course and caliber. No pathologic mediastinal/hilar lymphadenopathy. Lungs are inflated and clear. Bony thorax intact. Limited upper abdomen is unremarkable. Impression: Mild respiration artifact limits pulmonary embolus evaluation. No central pulmonary embolus or acute cardiopulmonary abnormalities.
[2020-10-06] MEDS: Ativan 2 MG/1 ML VIAL IV PRN ×3 (00:35→10:36)
[2020-10-06] MEDS: solu-MEDROL 125 MG IV SCH ×3 (01:10→20:20)
[2020-10-06 03:28] LABS: Hemoglobin 12.8 gm/dl (12.0-16.0); Mean Cell Volume 84.2 fl (78-100); Mean Corpuscular Hemoglobin 27.6 pg (26-32); Mean Corpuscular Hgb Concent. 32.8 g/dl (32-36); Mean Platelet Volume 9.2 fl (7.5-11.0); Platelet Count 374 K/mm3 (150-450); Red Blood Count 4.63 M/mm3 (4.1-5.4); Red Cell Distribution Width 13.7 % (11.5-14.0); White Blood Count 20.9 K/mm3 (4.0-10.5)
[2020-10-06 04:32] LABS: ANION GAP 18.9 MEQ/L (5-15); BLOOD UREA NITROGEN 7 mg/dL (7-17); CHLORIDE 108 mmol/L (98-107); Calcium 9.6 mg/dL (8.4-10.2); Carbon Dioxide 18 mmol/L (22-30); Creatinine 1 0.57 mg/dL (0.52-1.04); EST GLOMERULAR FILTRATION RATE > 60.0 ML/MIN; Glucose 152 mg/dL (74-106); Potassium 4.4 mmol/L (3.5-5.1); SODIUM 141 mmol/L (137-145)
[2020-10-06] MEDS ORDERED: Sodium Chloride 3 ML UD NEBULES IH ONE (04:34)
[2020-10-06] MEDS: Sodium Chloride 0.9% 1000 ML 1,000 ML IV SCH ×3 (04:39→20:21)
[2020-10-06] MEDS ORDERED: DUONEB 0.5-3 MG/3 ml Neb IH ONE (07:11)
[2020-10-06] MEDS ORDERED: PULMICORT 0.5 MG/2 ML RESPULES IH ONE (07:11)
[2020-10-06] MEDS: DUONEB 0.5-3 MG/3 ml Neb IH SCH ×4 (07:30→19:39)
[2020-10-06] MEDS: PULMICORT 0.5 MG/2 ML RESPULES IH SCH ×2 (07:30→19:39)
[2020-10-06] MEDS: Lexapro 10 MG PO SCH (10:10)
[2020-10-06] MEDS: Tamiflu 75MG Capsule PO SCH ×2 (10:10→20:20)
[2020-10-06] MEDS: CLARITIN 10 MG PO SCH (10:10)
[2020-10-06] MEDS: Singulair 10 MG PO SCH (10:10)
[2020-10-06 11:15] LABS: TROPONIN 0.061 ng/mL (0.000-0.034)
[2020-10-06] MEDS: Wellbutrin XL 150 MG PO SCH (11:51)
--- NOTE | 2020-10-06 12:03 | PCM.HP ---
History of Present Illness - Chief Complaint Chief Complaint: Flu B, Bronchitis, Leukocytosis, Lactic acid acidosis History of Present Illness: is a 25 year old female pt of Dr. Lake with long hx asthma who was admitted to ER with influenza B and asthma exacerbation. She started feeling ill 2 d ago, then yesterday woke at 4 am with a coughing fit and came to ER. She was treated with IV steroids and felt much better so was discharged to home. When she got home, she "got a sip of water and a bit to eat" and felt so bad she came back to the ER. Her O2 saturation has been good throughout, without any supplemental O2. She does have a remote hx of int[facility] around [facility] a [facility]. She had several influenza/Covid tests; there have been conflicting results regarding the flu so she is on contact precautions and tamiflu. Her CT chest had some motion artifact but was neg for central pulmonary embolism. She was given 1 dose of IV meropenem in the ER due to elevated lactic acid. Her troponins were initially normal, but the last 3 have been somewhat elevated (0.056, to 0.063, now to 0.061). She does c/o some upper chest tightness "with asthma exacerbation" but she says this improves when her breathing is better and when she expectorates phlegm. Her mother has "some heart issues" recently but pt doesn't think her mom has ever had a heart attack. Her lactic acid has been elevated during her stay; most recently it increased from 2.3 up to 3.9. Bicarb was initially 20 but was 18 this morning. She is receiving xopenex prn and duonebs; her HR has been in the 140s at admission; down into the 90s at times now, but will still increase into the 120s intermittently. Pt had quite a bit of anxiety last night, so was given IV ativan several times with good results. Currently she is on 2L O2 per oxymask; her O2 sats have remained normal as I mentioned above, but she subjectively felt much better with the oxymask so that has remained in place. - Review of Systems Constitutional: Fatigue Respiratory: Cough, Wheezing Cardiac: Chest Pain (tightness with the asthma symptoms) Abdominal/Gastrointestinal: Nausea, Vomiting (she thinks d/t medicines) Neurological: Other (intermittently will have sweats followed by syncope - last episode 1 mo ago) Psychological: Anxiety All Other Systems: Reviewed and Negative Medications & Allergies Home Medications: Home Medication List Albuterol 2.5 mg/3 ml Neb [Proventil 2.5 mg/3 ml Neb] 2.5 mg IH Q4HPRN PRN #30 neb 12/10/18 [Rx Confirmed 10/05/20] Escitalopram Oxalate [Lexapro] 20 mg PO DAILY 06/18/19 [History Confirmed 10/05/20] Dextroamphetamine/Amphetamine [Dextroamp-Amphetamin 20 mg Tab] 20 mg PO BID 09/21/19 [History Confirmed 10/05/20] Loratadine 10 mg [Claritin 10 mg] 10 mg PO DAILY 09/21/19 [History Confirmed 10/05/20] Budesonide [Pulmicort Flexhaler] 1 inh PO UD 10/05/20 [History Confirmed 10/05/20] Montelukast Sodium 10 mg [Singulair 10 MG] 10 mg PO DAILY 10/05/20 [History Confirmed 10/05/20] Bupropion HCl [Wellbutrin Xl] 300 mg PO DAILY 10/06/20 [History Confirmed 10/06/20] Allergies/Adverse Reactions: Allergies Allergy/AdvReac Type Severity Reaction Status Date / Time No Known Drug Allergies Allergy Verified 10/05/20 18:32 - Past Medical History Past Medical History: Yes Neurological History: No Pertinent History ENT History: No Pertinent History Cardiac History: No Pertinent History Respiratory History: Asthma Endocrine Medical History: No Pertinent History Musculoskelatal History: No Pertinent History GI Medical History: No Pertinent History History: No Pertinent History Pyscho-Social History: Anxiety, Depression Reproductive Disorders: No Pertinent History Comment: Seasonal allergies - Female History Hx Last Menstrual Period: unsure Are you now?: No - Past Surgical History Past Surgical History: No Neuro Surgical History: No Pertinent History Cardiac History: No Pertinent History Respiratory Surgery: No Pertinent History GI Surgical History: No Pertinent History Genitourinary Surgical Hx: No Pertinent History Musculskeletal Surgical Hx: No Pertinent History Female Surgical History: No Pertinent History Other Surgical History: wisdom teeth removed - Social History Smoking Status: Current every day smoker How long have you smoked: 11 yrs Exposure to second hand smoke: Yes Alcohol: Occasionally Drug Use: heroin - Physical Exam Vital Signs: Vital Signs - 24 hr Temp Pulse Resp BP Pulse Ox 10/06/20 08:00 97.8 F 93 H 18 129/62 97 10/06/20 07:30 93 H 20 95 10/06/20 04:00 97.7 F 102 H 24 128/78 93 L 10/05/20 23:39 96.5 F 127 H 20 129/77 95 10/05/20 19:55 98.8 F 121 H 22 125/85 97 10/05/20 19:45 124 H 14 93 L 10/05/20 19:40 98.2 F 125 H 24 127/72 94 L 10/05/20 18:06 97 10/05/20 18:03 126 H 20 114/73 97 10/05/20 17:00 128 H 20 130/77 97 10/05/20 16:19 136 H 26 H 123/74 98 10/05/20 15:08 140 H 28 H 139/94 99 10/05/20 14:51 99 10/05/20 14:20 140 H 16 96 10/05/20 14:14 98.2 F 136 H 28 H 164/121 97 General Appearance: no apparent distress, alert Neurologic Exam: oriented x 3, cooperative Eye Exam: eyes nml inspection Ears, Nose, Throat Exam: moist mucous membranes Neck Exam: normal inspection Respiratory Exam: normal breath sounds, lungs clear, wheezing (scattered, faint), No crackles/rales, No rhonchi Cardiovascular Exam: normal heart sounds, tachycardia, No murmur Gastrointestinal/Abdomen Exam: soft, normal bowel sounds, No tenderness, No distention, No mass, No guarding, No rebound Extremity Exam: normal inspection, No pedal edema, No swelling Skin Exam: normal color, warm, dry, No rash Results - Labs Lab/Micro Results: Lab Results-Last 24 Hours 10/05/20 10/05/20 10/05/20 Range/Units 14:30 14:50 14:50 WBC 12.1 H (4.0-10.5) K/mm3 RBC 5.17 (4.1-5.4) M/mm3 Hgb 14.4 (12.0-16.0) gm/dl Hct 44.0 (35-47) % MCV 85.1 (78-100) fl MCH 27.9 (26-32) pg MCHC 32.7 (32-36) g/dl RDW 13.5 (11.5-14.0) % Plt Count 369 (150-450) K/mm3 MPV 9.0 (7.5-11.0) fl Gran % 92.0 H (36.0-66.0) % Eos # (Auto) 0.08 (0-0.5) Absolute Lymphs (auto) 0.72 L (1.0-4.6) Absolute Monos (auto) 0.15 (0.0-1.3) Lymphocytes % 5.9 L (24.0-44.0) % Monocytes % 1.2 (0.0-12.0) % Eosinophils % 0.7 (0.00-5.0) % Basophils % 0.2 (0.0-0.4) % Absolute Granulocytes 11.15 H (1.4-6.9) Basophils # 0.02 (0-0.4) D-Dimer (215-500) ng/mL Sodium (137-145) mmol/L Potassium (3.5-5.1) mmol/L Chloride (98-107) mmol/L Carbon Dioxide (22-30) mmol/L Anion Gap (5-15) MEQ/L BUN (7-17) mg/dL Creatinine (0.52-1.04) mg/dL Estimated GFR ML/MIN Glucose (74-106) mg/dL Lactic Acid 4.7 H (0.4-2.0) Calcium (8.4-10.2) mg/dL Magnesium (1.6-2.3) mg/dL Total Bilirubin (0.2-1.3) mg/dL AST (14-36) U/L ALT (0-35) U/L Alkaline Phosphatase (38-126) U/L Lactate Dehydrogenase (120-246) U/L Troponin I < 0.012 (0.000-0.034) ng/mL NT-Pro-B Natriuret Pep (0-450) pg/mL Serum Total Protein (6.3-8.2) g/dL Albumin (3.5-5.0) g/dL Influenza Type A Ag (NEGATIVE) Influenza Type B Ag (NEGATIVE) RSV (PCR) (Negative) SARS-CoV-2 (PCR) (NEGATIVE) 10/05/20 10/05/20 10/05/20 Range/Units 14:50 14:50 14:50 WBC (4.0-10.5) K/mm3 RBC (4.1-5.4) M/mm3 Hgb (12.0-16.0) gm/dl Hct (35-47) % MCV (78-100) fl MCH (26-32) pg MCHC (32-36) g/dl RDW (11.5-14.0) % Plt Count (150-450) K/mm3 MPV (7.5-11.0) fl Gran % (36.0-66.0) % Eos # (Auto) (0-0.5) Absolute Lymphs (auto) (1.0-4.6) Absolute Monos (auto) (0.0-1.3) Lymphocytes % (24.0-44.0) % Monocytes % (0.0-12.0) % Eosinophils % (0.00-5.0) % Basophils % (0.0-0.4) % Absolute Granulocytes (1.4-6.9) Basophils # (0-0.4) D-Dimer 543 H* (215-500) ng/mL Sodium 141 (137-145) mmol/L Potassium 3.5 (3.5-5.1) mmol/L Chloride 105 (98-107) mmol/L Carbon Dioxide 20 L (22-30) mmol/L Anion Gap 19.4 H (5-15) MEQ/L BUN 8 (7-17) mg/dL Creatinine 0.68 (0.52-1.04) mg/dL Estimated GFR > 60.0 ML/MIN Glucose 167 H (74-106) mg/dL Lactic Acid (0.4-2.0) Calcium 9.8 (8.4-10.2) mg/dL Magnesium 1.9 (1.6-2.3) mg/dL Total Bilirubin 0.20 (0.2-1.3) mg/dL AST 31 (14-36) U/L ALT 36 H (0-35) U/L Alkaline Phosphatase 83 (38-126) U/L Lactate Dehydrogenase (120-246) U/L Troponin I (0.000-0.034) ng/mL NT-Pro-B Natriuret Pep 27.7 (0-450) pg/mL Serum Total Protein 7.8 (6.3-8.2) g/dL Albumin 4.7 (3.5-5.0) g/dL Influenza Type A Ag NEGATIVE (NEGATIVE) Influenza Type B Ag POSITIVE (NEGATIVE) RSV (PCR) (Negative) SARS-CoV-2 (PCR) (NEGATIVE) 10/05/20 10/05/20 10/06/20 Range/Units 16:58 17:07 03:15 WBC (4.0-10.5) K/mm3 RBC (4.1-5.4) M/mm3 Hgb (12.0-16.0) gm/dl Hct (35-47) % MCV (78-100) fl MCH (26-32) pg MCHC (32-36) g/dl RDW (11.5-14.0) % Plt Count (150-450) K/mm3 MPV (7.5-11.0) fl Gran % (36.0-66.0) % Eos # (Auto) (0-0.5) Absolute Lymphs (auto) (1.0-4.6) Absolute Monos (auto) (0.0-1.3) Lymphocytes % (24.0-44.0) % Monocytes % (0.0-12.0) % Eosinophils % (0.00-5.0) % Basophils % (0.0-0.4) % Absolute Granulocytes (1.4-6.9) Basophils # (0-0.4) D-Dimer (215-500) ng/mL Sodium (137-145) mmol/L Potassium (3.5-5.1) mmol/L Chloride (98-107) mmol/L Carbon Dioxide (22-30) mmol/L Anion Gap (5-15) MEQ/L BUN (7-17) mg/dL Creatinine (0.52-1.04) mg/dL Estimated GFR ML/MIN Glucose (74-106) mg/dL Lactic Acid 6.8 H (0.4-2.0) Calcium (8.4-10.2) mg/dL Magnesium (1.6-2.3) mg/dL Total Bilirubin (0.2-1.3) mg/dL AST (14-36) U/L ALT (0-35) U/L Alkaline Phosphatase (38-126) U/L Lactate Dehydrogenase (120-246) U/L Troponin I 0.056 H* (0.000-0.034) ng/mL NT-Pro-B Natriuret Pep (0-450) pg/mL Serum Total Protein (6.3-8.2) g/dL Albumin (3.5-5.0) g/dL Influenza Type A Ag NEGATIVE (NEGATIVE) Influenza Type B Ag NEGATIVE (NEGATIVE) RSV (PCR) NEGATIVE (Negative) SARS-CoV-2 (PCR) NEGATIVE (NEGATIVE) 10/06/20 10/06/20 10/06/20 Range/Units 03:15 03:15 05:00 WBC 20.9 H (4.0-10.5) K/mm3 RBC 4.63 (4.1-5.4) M/mm3 Hgb 12.8 (12.0-16.0) gm/dl Hct 39.0 (35-47) % MCV 84.2 (78-100) fl MCH 27.6 (26-32) pg MCHC 32.8 (32-36) g/dl RDW 13.7 (11.5-14.0) % Plt Count 374 (150-450) K/mm3 MPV 9.2 (7.5-11.0) fl Gran % (36.0-66.0) % Eos # (Auto) (0-0.5) Absolute Lymphs (auto) (1.0-4.6) Absolute Monos (auto) (0.0-1.3) Lymphocytes % (24.0-44.0) % Monocytes % (0.0-12.0) % Eosinophils % (0.00-5.0) % Basophils % (0.0-0.4) % Absolute Granulocytes (1.4-6.9) Basophils # (0-0.4) D-Dimer (215-500) ng/mL Sodium 141 (137-145) mmol/L Potassium 4.4 D (3.5-5.1) mmol/L Chloride 108 H (98-107) mmol/L Carbon Dioxide 18 L (22-30) mmol/L Anion Gap 18.9 H (5-15) MEQ/L BUN 7 (7-17) mg/dL Creatinine 0.57 (0.52-1.04) mg/dL Estimated GFR > 60.0 ML/MIN Glucose 152 H (74-106) mg/dL Lactic Acid 2.6 H (0.4-2.0) Calcium 9.6 (8.4-10.2) mg/dL Magnesium (1.6-2.3) mg/dL Total Bilirubin (0.2-1.3) mg/dL AST (14-36) U/L ALT (0-35) U/L Alkaline Phosphatase (38-126) U/L Lactate Dehydrogenase (120-246) U/L Troponin I (0.000-0.034) ng/mL NT-Pro-B Natriuret Pep (0-450) pg/mL Serum Total Protein (6.3-8.2) g/dL Albumin (3.5-5.0) g/dL Influenza Type A Ag (NEGATIVE) Influenza Type B Ag (NEGATIVE) RSV (PCR) (Negative) SARS-CoV-2 (PCR) (NEGATIVE) 10/06/20 10/06/20 10/06/20 Range/Units 07:15 07:30 10:35 WBC (4.0-10.5) K/mm3 RBC (4.1-5.4) M/mm3 Hgb (12.0-16.0) gm/dl Hct (35-47) % MCV (78-100) fl MCH (26-32) pg MCHC (32-36) g/dl RDW (11.5-14.0) % Plt Count (150-450) K/mm3 MPV (7.5-11.0) fl Gran % (36.0-66.0) % Eos # (Auto) (0-0.5) Absolute Lymphs (auto) (1.0-4.6) Absolute Monos (auto) (0.0-1.3) Lymphocytes % (24.0-44.0) % Monocytes % (0.0-12.0) % Eosinophils % (0.00-5.0) % Basophils % (0.0-0.4) % Absolute Granulocytes (1.4-6.9) Basophils # (0-0.4) D-Dimer (215-500) ng/mL Sodium (137-145) mmol/L Potassium (3.5-5.1) mmol/L Chloride (98-107) mmol/L Carbon Dioxide (22-30) mmol/L Anion Gap (5-15) MEQ/L BUN (7-17) mg/dL Creatinine (0.52-1.04) mg/dL Estimated GFR ML/MIN Glucose (74-106) mg/dL Lactic Acid 2.3 H (0.4-2.0) Calcium (8.4-10.2) mg/dL Magnesium (1.6-2.3) mg/dL Total Bilirubin (0.2-1.3) mg/dL AST (14-36) U/L ALT (0-35) U/L Alkaline Phosphatase (38-126) U/L Lactate Dehydrogenase 229 (120-246) U/L Troponin I 0.063 H* 0.061 H* (0.000-0.034) ng/mL NT-Pro-B Natriuret Pep (0-450) pg/mL Serum Total Protein (6.3-8.2) g/dL Albumin (3.5-5.0) g/dL Influenza Type A Ag (NEGATIVE) Influenza Type B Ag (NEGATIVE) RSV (PCR) (Negative) SARS-CoV-2 (PCR) (NEGATIVE) 10/06/20 Range/Units 10:35 WBC (4.0-10.5) K/mm3 RBC (4.1-5.4) M/mm3 Hgb (12.0-16.0) gm/dl Hct (35-47) % MCV (78-100) fl MCH (26-32) pg MCHC (32-36) g/dl RDW (11.5-14.0) % Plt Count (150-450) K/mm3 MPV (7.5-11.0) fl Gran % (36.0-66.0) % Eos # (Auto) (0-0.5) Absolute Lymphs (auto) (1.0-4.6) Absolute Monos (auto) (0.0-1.3) Lymphocytes % (24.0-44.0) % Monocytes % (0.0-12.0) % Eosinophils % (0.00-5.0) % Basophils % (0.0-0.4) % Absolute Granulocytes (1.4-6.9) Basophils # (0-0.4) D-Dimer (215-500) ng/mL Sodium (137-145) mmol/L Potassium (3.5-5.1) mmol/L Chloride (98-107) mmol/L Carbon Dioxide (22-30) mmol/L Anion Gap (5-15) MEQ/L BUN (7-17) mg/dL Creatinine (0.52-1.04) mg/dL Estimated GFR ML/MIN Glucose (74-106) mg/dL Lactic Acid 3.9 H (0.4-2.0) Calcium (8.4-10.2) mg/dL Magnesium (1.6-2.3) mg/dL Total Bilirubin (0.2-1.3) mg/dL AST (14-36) U/L ALT (0-35) U/L Alkaline Phosphatase (38-126) U/L Lactate Dehydrogenase (120-246) U/L Troponin I (0.000-0.034) ng/mL NT-Pro-B Natriuret Pep (0-450) pg/mL Serum Total Protein (6.3-8.2) g/dL Albumin (3.5-5.0) g/dL Influenza Type A Ag (NEGATIVE) Influenza Type B Ag (NEGATIVE) RSV (PCR) (Negative) SARS-CoV-2 (PCR) (NEGATIVE) - Radiology Impressions Radiology Exams & Impressions: Radiology Procedures Category Date Time Status CHEST 1 VIEW (PORTABLE) Stat Exams 10/05/20 14:30 Completed CHEST WITH CONTRAST [CT] Stat Exams 10/05/20 15:28 Completed - Other Procedures and Tests Respiratory Therapy 10/05/20 14:37 Respiratory Therapy Assessment DAILY 10/05/20 19:45 Oxygen Nasal Cannula 2 lpm Assessment/Plan (1) Exacerbation of asthma Current Visit: No Status: Acute Qualifiers: Asthma severity: moderate Asthma persistence: unspecified Qualified Code(s): J45.901 - Unspecified asthma with (acute) exacerbation Assessment & Plan: Will resume antibiotics. Add mucinex. xopenex to be given instead of albuterol when possible as her HR is elevated. Code(s): J45.901 - UNSPECIFIED ASTHMA WITH (ACUTE) EXACERBATION (2) Elevated troponin Current Visit: Yes Status: Acute Assessment & Plan: I think this is due to her elevated HR. She is going to find out more information on her mom's heart disease (if mom started having CAD in her 20s or 30s, I would consult cardiology). Code(s): R77.8 - OTHER SPECIFIED ABNORMALITIES OF PLASMA PROTEINS (3) Syncope Current Visit: Yes Status: Chronic Qualifiers: Syncope type: unspecified Qualified Code(s): R55 - Syncope and collapse Assessment & Plan: Will check a1c. It doesn't look as though she's had any workup for this. Would start outpatient with event monitor; will defer to Dr. Lake as I think pt will be here the entire weekend. Code(s): R55 - SYNCOPE AND COLLAPSE (4) Influenza B Current Visit: Yes Status: Acute Assessment & Plan: on tamiflu. Code(s): J10.1 - FLU DUE TO OTH IDENT INFLUENZA VIRUS W OTH RESP MANIFEST (5) Tachycardia Current Visit: No Status: Acute Code(s): R00.0 - TACHYCARDIA, UNSPECIFIED
[2020-10-06] MEDS: Mucinex 600MG ER Tabs PO SCH ×2 (12:29→20:20)
[2020-10-06] MEDS ORDERED: Lactated Ringers 1,000 ML IV SCH (12:30)
[2020-10-06] MEDS: ROCEPHIN 1 Gm-D5w 50 ml Bag** 1 G/50 ML IVPB IV SCH (14:09)
[2020-10-06] MEDS: NICOTINE PATCH 7MG TD SCH (15:22)
[2020-10-06] MEDS: ENOXAPARIN SODIUM SQ SCH (17:29)
[2020-10-07] MEDS: solu-MEDROL 125 MG IV SCH ×3 (06:12→21:12)
[2020-10-07] MEDS: DUONEB 0.5-3 MG/3 ml Neb IH SCH ×4 (07:32→19:47)
[2020-10-07] MEDS: PULMICORT 0.5 MG/2 ML RESPULES IH SCH ×2 (07:32→19:47)
[2020-10-07] MEDS: Sodium Chloride 0.9% 1000 ML 1,000 ML IV SCH ×2 (08:40→19:39)
[2020-10-07 10:01] LABS: Hematocrit 37.9 % (35-47); Hemoglobin 12.3 gm/dl (12.0-16.0); Mean Cell Volume 85.2 fl (78-100); Mean Corpuscular Hemoglobin 27.6 pg (26-32); Mean Corpuscular Hgb Concent. 32.5 g/dl (32-36); Mean Platelet Volume 9.1 fl (7.5-11.0); Platelet Count 368 K/mm3 (150-450); Red Blood Count 4.45 M/mm3 (4.1-5.4); Red Cell Distribution Width 14.1 % (11.5-14.0); White Blood Count 19.2 K/mm3 (4.0-10.5)
[2020-10-07] MEDS: ROCEPHIN 1 Gm-D5w 50 ml Bag** 1 G/50 ML IVPB IV SCH (10:06)
[2020-10-07] MEDS: Wellbutrin XL 150 MG PO SCH (10:08)
[2020-10-07] MEDS: CLARITIN 10 MG PO SCH (10:08)
[2020-10-07] MEDS: Mucinex 600MG ER Tabs PO SCH ×2 (10:08→21:11)
[2020-10-07] MEDS: Singulair 10 MG PO SCH (10:08)
[2020-10-07] MEDS: Lexapro 10 MG PO SCH (10:08)
[2020-10-07] MEDS: Tamiflu 75MG Capsule PO SCH ×2 (10:08→21:11)
[2020-10-07] MEDS: NICOTINE PATCH 7MG TD SCH (10:09)
[2020-10-07] MEDS: ENOXAPARIN SODIUM SQ SCH (10:12)
[2020-10-07 10:18] LABS: ANION GAP 13.2 MEQ/L (5-15); BLOOD UREA NITROGEN 9 mg/dL (7-17); CHLORIDE 106 mmol/L (98-107); Calcium 9.1 mg/dL (8.4-10.2); Carbon Dioxide 25 mmol/L (22-30); Creatinine 1 0.59 mg/dL (0.52-1.04); EST GLOMERULAR FILTRATION RATE > 60.0 ML/MIN; Glucose 204 mg/dL (74-106); SODIUM 140 mmol/L (137-145); TROPONIN 0.032 ng/mL (0.000-0.034)
[2020-10-07 10:52] LABS: Lymphocytes 12 % (24-44); Neutrophils 88 % (36.0-66.0); Platelet Estimate NORMAL (NORMAL); Total Cells Counted 100
--- NOTE | 2020-10-07 12:12 | PCM.NOTE ---
Date and Time: 10/07/20 1207 Subjective Assessment: She is feeling better today, although currently having some recurrent chest tightness. Gely po fine. Anxiety has been better. On telemetry, when her HR was in normal range, she had some sinus arrhythmia. When tachycardic (currently HR 101) her rhythm is nl. - Review of Systems Constitutional: No Fever Respiratory: Cough Objective Exam General Appearance: no apparent distress, alert Neurologic Exam: oriented x 3, cooperative, normal mood/affect Skin Exam: normal color, warm, dry, No rash Ears, Nose, Throat Exam: moist mucous membranes Respiratory Exam: normal breath sounds, lungs clear, wheezing (faint, occasional), No crackles/rales, No rhonchi Cardiovascular Exam: normal heart sounds, tachycardia (reg rhythm), No murmur Gastrointestinal/Abdomen Exam: soft, normal bowel sounds, No tenderness, No distention, No mass, No guarding, No rebound Extremity Exam: normal inspection, No pedal edema, No swelling OBJECTIVE DATA Vital Signs: Vital Signs - 24 hr Temp Pulse Resp BP Pulse Ox 10/07/20 11:07 120 H 18 96 10/07/20 07:53 83 20 96 10/07/20 07:41 97.6 F 81 16 141/80 96 10/07/20 04:25 98.5 F 81 16 119/63 97 10/06/20 23:47 98.3 F 103 H 16 121/67 98 10/06/20 19:47 98.2 F 114 H 20 127/70 98 10/06/20 19:39 114 H 20 98 10/06/20 16:00 99.1 F 98 H 18 128/70 10/06/20 15:54 102 H 22 99 Pain Assessment - Last Documented Pain Intensity 0 Pain Scale Used 0-10 Pain Scale Intake and Output: Intake & Output 10/05/20 10/06/20 10/07/20 10/08/20 11:59 11:59 11:59 11:59 Intake Total 2147 6691 Output Total 1000 Balance 1147 6691 Weight 88 kg Lab Results: Lab Results-Last 24 Hours 10/06/20 10/06/20 10/07/20 Range/Units 02:45 19:15 09:57 WBC 19.2 H (4.0-10.5) K/mm3 RBC 4.45 (4.1-5.4) M/mm3 Hgb 12.3 (12.0-16.0) gm/dl Hct 37.9 (35-47) % MCV 85.2 (78-100) fl MCH 27.6 (26-32) pg MCHC 32.5 (32-36) g/dl RDW 14.1 H (11.5-14.0) % Plt Count 368 (150-450) K/mm3 MPV 9.1 (7.5-11.0) fl Segmented Neutrophils 88 H (36.0-66.0) % Lymphocytes (Manual) 12 L (24-44) % Platelet Estimate NORMAL (NORMAL) RBC Morphology NORMAL Sodium (137-145) mmol/L Potassium (3.5-5.1) mmol/L Chloride (98-107) mmol/L Carbon Dioxide (22-30) mmol/L Anion Gap (5-15) MEQ/L BUN (7-17) mg/dL Creatinine (0.52-1.04) mg/dL Estimated GFR ML/MIN Glucose (74-106) mg/dL Calcium (8.4-10.2) mg/dL Troponin I 0.058 H* 0.049 H* (0.000-0.034) ng/mL 10/07/20 Range/Units 09:57 WBC (4.0-10.5) K/mm3 RBC (4.1-5.4) M/mm3 Hgb (12.0-16.0) gm/dl Hct (35-47) % MCV (78-100) fl MCH (26-32) pg MCHC (32-36) g/dl RDW (11.5-14.0) % Plt Count (150-450) K/mm3 MPV (7.5-11.0) fl Segmented Neutrophils (36.0-66.0) % Lymphocytes (Manual) (24-44) % Platelet Estimate (NORMAL) RBC Morphology Sodium 140 (137-145) mmol/L Potassium 4.0 (3.5-5.1) mmol/L Chloride 106 (98-107) mmol/L Carbon Dioxide 25 (22-30) mmol/L Anion Gap 13.2 (5-15) MEQ/L BUN 9 (7-17) mg/dL Creatinine 0.59 (0.52-1.04) mg/dL Estimated GFR > 60.0 ML/MIN Glucose 204 H (74-106) mg/dL Calcium 9.1 (8.4-10.2) mg/dL Troponin I 0.032 (0.000-0.034) ng/mL Radiology Exams: Radiology Procedures Category Date Time Status CHEST 1 VIEW (PORTABLE) Stat Exams 10/05/20 14:30 Completed CHEST WITH CONTRAST [CT] Stat Exams 10/05/20 15:28 Completed Assessment/Plan (1) Exacerbation of asthma Current Visit: No Status: Acute Qualifiers: Asthma severity: moderate Asthma persistence: unspecified Qualified Code(s): J45.901 - Unspecified asthma with (acute) exacerbation Assessment & Plan: She appears to be improving. Will not decrease the steroids yet as she is still having chest tightness. On rocephin day #2. Code(s): J45.901 - UNSPECIFIED ASTHMA WITH (ACUTE) EXACERBATION (2) Elevated troponin Current Visit: Yes Status: Acute Assessment & Plan: Rechecking again as she is having some chest tightness. If it is elevated, will go ahead and consult cardiology (discussed with pt). However, recognize that in this 25 yo a cardiac etiology is less likely. Code(s): R77.8 - OTHER SPECIFIED ABNORMALITIES OF PLASMA PROTEINS (3) Syncope Current Visit: Yes Status: Chronic Qualifiers: Syncope type: unspecified Qualified Code(s): R55 - Syncope and collapse Code(s): R55 - SYNCOPE AND COLLAPSE (4) Influenza B Current Visit: Yes Status: Acute Assessment & Plan: Had conflicting test results, so treating as for influenza positive; finish course of tamiflu. Code(s): J10.1 - FLU DUE TO OTH IDENT INFLUENZA VIRUS W OTH RESP MANIFEST (5) Tachycardia Current Visit: No Status: Acute Assessment & Plan: overall, HR better than at admission. Code(s): R00.0 - TACHYCARDIA, UNSPECIFIED
[2020-10-07] MEDS ORDERED: CHLORASEPTIC SPRAY 180 ML PO PRN (12:19)
[2020-10-08] MEDS: Sodium Chloride 0.9% 1000 ML 1,000 ML IV SCH ×3 (04:48→21:20)
[2020-10-08] MEDS: solu-MEDROL 125 MG IV SCH (05:00)
[2020-10-08] MEDS: DUONEB 0.5-3 MG/3 ml Neb IH SCH ×4 (07:09→19:04)
[2020-10-08] MEDS: ROCEPHIN 1 Gm-D5w 50 ml Bag** 1 G/50 ML IVPB IV SCH (10:16)
[2020-10-08] MEDS: CLARITIN 10 MG PO SCH (10:17)
[2020-10-08] MEDS: ENOXAPARIN SODIUM SQ SCH ×2 (10:17→10:30)
[2020-10-08] MEDS: Lexapro 10 MG PO SCH (10:17)
[2020-10-08] MEDS: Mucinex 600MG ER Tabs PO SCH ×2 (10:17→21:18)
[2020-10-08] MEDS: Singulair 10 MG PO SCH (10:17)
[2020-10-08] MEDS: Tamiflu 75MG Capsule PO SCH ×2 (10:17→21:18)
[2020-10-08] MEDS: Wellbutrin XL 150 MG PO SCH (10:18)
[2020-10-08] MEDS: NICOTINE PATCH 7MG TD SCH (10:18)
--- NOTE | 2020-10-08 12:50 | PCM.NOTE ---
Date and Time: 10/08/20 1244 Subjective Assessment: Patient is on Solumedrol IV and dose has not been able to be decreased since admit. She is still tight/wheezing right lung. She is on O2 at 2L/NC and at bedrest.ECHO done this morning but no formal reading yet. Objective Exam General Appearance: no apparent distress Neurologic Exam: alert, oriented x 3, cooperative, normal mood/affect Skin Exam: normal color, warm Eye Exam: eyes nml inspection Ears, Nose, Throat Exam: normal ENT inspection Neck Exam: normal inspection Respiratory Exam: diminished breath sounds (right mid and lower), wheezing (right mid and lower) Cardiovascular Exam: regular rate/rhythm Gastrointestinal/Abdomen Exam: soft (nontender) Extremity Exam: normal inspection OBJECTIVE DATA Vital Signs: Vital Signs - 24 hr Temp Pulse Resp BP Pulse Ox 10/08/20 12:00 97.3 F 72 16 148/69 97 10/08/20 11:30 90 23 98 10/08/20 07:41 96.7 F 75 16 164/83 97 10/08/20 07:05 92 H 16 96 10/08/20 04:00 98.1 F 87 19 107/59 97 10/07/20 23:39 98.3 F 97 H 20 123/66 98 10/07/20 20:00 98.1 F 126 H 24 120/63 97 10/07/20 19:47 107 H 18 97 10/07/20 16:00 98.8 F 82 16 133/97 96 10/07/20 15:18 90 20 97 Pain Assessment - Last Documented Pain Intensity 0 Pain Scale Used 0-10 Pain Scale Intake and Output: Intake & Output 10/06/20 10/07/20 10/08/20 10/09/20 11:59 11:59 11:59 11:59 Intake Total 2147 6931 4198 Output Total 1000 Balance 1147 6931 4198 Weight 88 kg 90.3 kg 90.2 kg Radiology Exams: Radiology Procedures Category Date Time Status ECHO W/2D AND DOPPLER [US] Routine Exams 10/08/20 12:08 Taken Assessment/Plan (1) Acute exacerbation of extrinsic asthma Current Visit: No Status: Acute Assessment & Plan: start to lower IV solumedrol and monitor Code(s): J45.901 - UNSPECIFIED ASTHMA WITH (ACUTE) EXACERBATION (2) Influenza B Current Visit: Yes Status: Acute Assessment & Plan: Roommate had the flu ,patient is completing a course of Tamiflu started on admission. Code(s): J10.1 - FLU DUE TO OTH IDENT INFLUENZA VIRUS W OTH RESP MANIFEST
[2020-10-08] MEDS: solu-MEDROL 40 MG IV SCH ×2 (13:46→21:19)
[2020-10-08] MEDS: PULMICORT 0.5 MG/2 ML RESPULES IH SCH ×2 (14:32→19:04)
[2020-10-09] MEDS: solu-MEDROL 40 MG IV SCH (05:06)
[2020-10-09] MEDS: DUONEB 0.5-3 MG/3 ml Neb IH SCH ×3 (07:11→15:35)
[2020-10-09] MEDS: PULMICORT 0.5 MG/2 ML RESPULES IH SCH (07:12)
[2020-10-09] MEDS: Sodium Chloride 0.9% 1000 ML 1,000 ML IV SCH (07:27)
[2020-10-09] MEDS: Singulair 10 MG PO SCH (10:22)
[2020-10-09] MEDS: Tamiflu 75MG Capsule PO SCH (10:22)
[2020-10-09] MEDS: CLARITIN 10 MG PO SCH (10:22)
[2020-10-09] MEDS: Mucinex 600MG ER Tabs PO SCH (10:22)
[2020-10-09] MEDS: Lexapro 10 MG PO SCH (10:22)
[2020-10-09] MEDS: ROCEPHIN 1 Gm-D5w 50 ml Bag** 1 G/50 ML IVPB IV SCH (10:23)
[2020-10-09] MEDS: Wellbutrin XL 150 MG PO SCH (10:23)
[2020-10-09] MEDS: ENOXAPARIN SODIUM SQ SCH (10:23)
[2020-10-09] MEDS: NICOTINE PATCH 7MG TD SCH (10:23)
[2020-10-09 13:28] VITALS: BP 158/93
--- NOTE | 2020-10-09 14:03 | PCM.DCORD ---
- Discharge Disposition: Home, Self-Care Condition: Stable Prescriptions: New Prednisone 10 mg [Deltasone 10 mg] 10 mg PO DAILY #30 tablet Guaifenesin 600 mg ER [Mucinex 600MG ER Tabs] 600 mg PO BID #30 tablet Nicotine [Nicotine Patch 7Mg] 1 each TD DAILY #30 patch.td24 Budesonide 0.5 mg/2 ml [Pulmicort 0.5 mg/2 ml Respules] 0.5 mg IH BID #30 ampul.neb. Bupropion HCl Xl 150 mg [Wellbutrin XL 150 MG] 150 mg PO DAILY #30 tablet Levalbuterol HCl 1.25 MG/0.5M* [Xopenex 1.25 MG/0.5 ML UD NEBULE] 0 mg NEB Q4H PRN PRN #120 neb PRN Reason: wheezing No Action Albuterol 2.5 mg/3 ml Neb [Proventil 2.5 mg/3 ml Neb] 2.5 mg IH Q4HPRN PRN #30 neb PRN Reason: DIFFICULTY BREATHING Escitalopram Oxalate [Lexapro] 20 mg PO DAILY Loratadine 10 mg [Claritin 10 mg] 10 mg PO DAILY Dextroamphetamine/Amphetamine [Dextroamp-Amphetamin 20 mg Tab] 20 mg PO BID Montelukast Sodium 10 mg [Singulair 10 MG] 10 mg PO DAILY Budesonide [Pulmicort Flexhaler] 1 inh PO UD Bupropion HCl [Wellbutrin Xl] 300 mg PO DAILY Follow up with: LARRY JOHNS DO [Primary Care Provider] -
--- NOTE | 2020-10-09 14:08 | PCM.DS ---
Discharge Summary Date of Admission: 10/06/20 12:10 Admitting Physician: HARESH ESCALERA Primary Care Provider: LARRY JOHNS DO Allergies Allergies No Known Drug Allergies Allergy (Verified 10/05/20 18:32) Hospital Summary - Hospital Course Hospital Course: Patient was admitted to ER after representing to ER with Dyspnea. - Vitals & Intake/Output Vital Signs: Vital Signs Temperature 98.6 F 10/09/20 12:00 Pulse Rate 88 10/09/20 12:00 Respiratory Rate 23 10/09/20 12:00 Blood Pressure 158/93 10/09/20 12:00 O2 Sat by Pulse Oximetry 95 10/09/20 12:00 Intake & Output: Intake & Output 10/07/20 10/08/20 10/09/20 10/10/20 11:59 11:59 11:59 11:59 Intake Total 6931 4198 4452 Balance 6931 4198 4452 Weight 90.3 kg 90.2 kg 90.4 kg - Lab Result Diagrams: 10/07/20 09:57 10/07/20 09:57 - Radiology Exams Ordered Rad Exams-Entire Visit: Radiology Procedures Category Date Time Status ECHO W/2D AND DOPPLER [US] Routine Exams 10/08/20 12:08 Taken - Procedures and Test Procedures and Tests throughout Hospitalization: Therapy Orders & Screens 10/05/20 14:37 Respiratory Therapy Assessment DAILY Comment: 10/05/20 18:30 Respiratory Therapy Consult ROUTINE Comment: Reason For Exam: 10/05/20 19:45 Oxygen Nasal Cannula 2 lpm Comment: Diagnosis: Flu B, Bronchitis, Leukocytosis, Lactic acid acidosis 10/05/20 19:54 RT Screen per Nursing Assess ONCE Comment: Protocol Order Physician Instructions: Greater than 3 points order RT Admission Screen Reason For Exam: Triggered on Admission Diagnosis: Flu B, Bronchitis, Leukocytosis, Lactic acid acidosis Diagnosis: Flu B, Bronchitis, Leukocytosis, Lactic acid acidosis Pneumonia: No Home O2: No Asthma: Yes CHF: No Home CPAP/BIPAP: No Home Nebs/MDI: Yes Total Points: 9 Smoking Cessation Education ONCE Comment: Diagnosis: Flu B, Bronchitis, Leukocytosis, Lactic acid acidosis Smoking Status: Current every day smoker How long have you smoked: 11 yrs Have you smoked in the past 12 months: Yes Approximately how many cigarettes per day: Vapes Do you dip or chew tobacco: No 10/06/20 04:27 EKG STAT Comment: Diagnosis: Flu B, Bronchitis, Leukocytosis, Lactic acid acidosis 10/06/20 12:39 EKG STAT Comment: Diagnosis: Flu B, Bronchitis, Leukocytosis, Lactic acid acidosis Final Diagnosis/Problem List - Final Discharge Diagnosis/Problem (1) Acute exacerbation of extrinsic asthma Current Visit: Yes Status: Acute Code(s): J45.901 - UNSPECIFIED ASTHMA WITH (ACUTE) EXACERBATION (2) Influenza B Current Visit: Yes Status: Acute Code(s): J10.1 - FLU DUE TO OTH IDENT INFLUENZA VIRUS W OTH RESP MANIFEST - Discharge Disposition: Home, Self-Care Condition: Stable Prescriptions: New Prednisone 10 mg [Deltasone 10 mg] 10 mg PO DAILY #30 tablet Guaifenesin 600 mg ER [Mucinex 600MG ER Tabs] 600 mg PO BID #30 tablet Nicotine [Nicotine Patch 7Mg] 1 each TD DAILY #30 patch.td24 Budesonide 0.5 mg/2 ml [Pulmicort 0.5 mg/2 ml Respules] 0.5 mg IH BID #30 ampul.neb. Bupropion HCl Xl 150 mg [Wellbutrin XL 150 MG] 150 mg PO DAILY #30 tablet Levalbuterol HCl 1.25 MG/0.5M* [Xopenex 1.25 MG/0.5 ML UD NEBULE] 0 mg NEB Q4H PRN PRN #120 neb PRN Reason: wheezing No Action Albuterol 2.5 mg/3 ml Neb [Proventil 2.5 mg/3 ml Neb] 2.5 mg IH Q4HPRN PRN #30 neb PRN Reason: DIFFICULTY BREATHING Escitalopram Oxalate [Lexapro] 20 mg PO DAILY Loratadine 10 mg [Claritin 10 mg] 10 mg PO DAILY Dextroamphetamine/Amphetamine [Dextroamp-Amphetamin 20 mg Tab] 20 mg PO BID Montelukast Sodium 10 mg [Singulair 10 MG] 10 mg PO DAILY Budesonide [Pulmicort Flexhaler] 1 inh PO UD Bupropion HCl [Wellbutrin Xl] 300 mg PO DAILY Instructions: Asthma, Adult (DC), Flu, Adult (DC) Follow up with: AMNA ADAMS [CONSULTING PHYSICIAN] - 10/22/21 9:00 am EUGENIE DEWITT [NON-STAFF PHY W/O PRIVILEGES] - 01/02/21 2:30 pm LARRY JOHNS DO [Primary Care Provider] - Forms: Discharge Instructions, Work/School Release Form
[2020-10-09 16:07] VITALS: PULSE 93; O2SAT 96
--- NOTE | 2020-10-11 08:47 | ECHO ---
DATE OF PROCEDURE: 10/08/2020 CLINICAL INFORMATION: Elevated troponin and dyspnea. The echocardiogram is shorter than usual. There are only 11 images. The M-mode 2D, and Doppler echocardiogram including color flow Doppler shows the left ventricle is normal in size at 5.2 cm. There is no thrombus noted. However there is no apical four chamber view. The septal wall thickness is normal at 1.0 cm. The left ventricular posterior wall thickness is normal at 0.9 cm. There is normal contractility of the left ventricle. The ejection fraction is calculated to be 79%. The right ventricle is grossly normal. The aortic valve opens well. There is no aortic regurgitation. There is mitral valve leaflet thickening. The left atrium is normal in size at 2.7 cm. There are no apical four chamber views to evaluate the interatrial septum or the right atrium. There is mild tricuspid regurgitation. There is mild pulmonic regurgitation. There is mild mitral regurgitation associated with mitral valve leaflet thickening. The tricuspid valve is not visualized. The pulmonic valve is not well visualized. The aortic root is normal at 2.9 cm. There is no pericardial effusion present. IMPRESSION: 1) NORMAL CONTRACTILITY OF THE LEFT VENTRICLE. 2) MITRAL VALVE LEAFLET THICKENING.
== END 2020-10-09 16:05 | disposition home or self-care (01) | DRG 202 ==
LOC: ED 14:13 → MED SURG 18:29 → OBSVTOIN 10-06 12:10
PROVIDERS: ADMIT Family Medicine; ATTEND Family Medicine
DX: J45.901 Unspecified asthma with (acute) exacerbation (principal); E87.2 Acidosis; J10.1 Influenza due to other identified influenza virus with other respiratory manifestations; Z79.899 Other long term (current) drug therapy; D72.829 Elevated white blood cell count, unspecified; R07.9 Chest pain, unspecified; R11.2 Nausea with vomiting, unspecified; R77.8 Other specified abnormalities of plasma proteins; R55 Syncope and collapse; R00.0 Tachycardia, unspecified
CPT/HCPCS: 0241U; 36000; 36415; 71045; 71260; 80048; 80053; 83605; 83615; 83735; 83880; 84484; 85025; 85027; 85379; 87400; 93005; 93041; 93268; 93306; 94640; 94760; 96360; 96374; 96375; 99284; 99285; G0378; J0696; J1200; J1650; J2060; J2405; J2920; J2930; J7609; Q0162; A9270-GY

== ENCOUNTER 2022-06-16 09:50 | Emergency (ER) | payer OTHER ==
[2022-06-16 09:53] VITALS: BP 142/93
[2022-06-16] MEDS ORDERED: PROVENTIL 2.5 MG/3 ML NEB IH ONE ×2 (10:06→10:11)
[2022-06-16] MEDS ORDERED: solu-MEDROL 125 MG, Sterile H2O 10 ml 2 ML IV ONE ×2 (10:06)
[2022-06-16] MEDS ORDERED: Magnesium 1 Gm / 100 Ml D5W*** 100 ML IV ONE (10:14)
[2022-06-16] MEDS ORDERED: solu-MEDROL ONE (10:14)
[2022-06-16] MEDS ORDERED: Sterile H2O 10 ml IJ ONE (10:15)
[2022-06-16] MEDS: Magnesium 1 Gm / 100 Ml D5W*** 100 ML IV SCH ×2 (10:16→11:40)
[2022-06-16 10:17] VITALS: PULSE 108
[2022-06-16 10:21] VITALS: O2SAT 96
--- NOTE | 2022-06-16 10:21 | ERPHSYRPT ---
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 Physician History: Patient is a 27-year-old female presents to emergency department for evaluation of shortness of breath. Patient has history of asthma. Patient believes she is experiencing an asthma exacerbation. Patient believes the asthma exacerbation was triggered by exposure to her friend's dog. Symptoms occurred approximately 30 minutes prior to arrival. Patient self treated with an EpiPen and a nebulizer and a rescue inhaler. Symptoms improved but not resolved. Patient is audibly wheezing. Mild respiratory distress. Symptoms are constant. Symptoms are moderate in intensity. Patient states he is otherwise healthy. She voices no other complaints or concerns at this time. Portions of this note were created with voice recognition technology. There may be grammatical, spelling, punctuation or sound alike errors Timing/Duration: today Activities at Onset: none Severity of Dyspnea-Max: moderate Severity of Dyspnea-Current: moderate Possible Cause: allergen exposure Modifying Factors: Improves With: exertion Associated Symptoms: wheezing, No chest pain/discomfort, No ankle swelling, No dizziness, No leg swelling, No muscle spasms hands, No productive cough Allergies/Adverse Reactions: No Known Drug Allergies Allergy (Verified 10/05/20 18:32) Home Medications: Escitalopram Oxalate [Lexapro] 20 mg PO DAILY 06/18/19 [History] Dextroamphetamine/Amphetamine [Dextroamp-Amphetamin 20 mg Tab] 20 mg PO BID 09/21/19 [History] Loratadine 10 mg [Claritin 10 mg] 10 mg PO DAILY 09/21/19 [History] Montelukast Sodium 10 mg [Singulair 10 MG] 10 mg PO DAILY 10/05/20 [History] Bupropion HCl [Wellbutrin Xl] 300 mg PO DAILY 10/06/20 [History] Hx Tetanus, Diphtheria Vaccination/Date Given: Yes Hx Influenza Vaccination/Date Given: No Hx Pneumococcal Vaccination/Date Given: No Travel Risk - International Travel Have you traveled outside of the country in past 3 weeks: No - Coronavirus Screening Are you exhibiting any of the following symptoms?: No - Vaccine Status Have you recieved a 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[employer]: [employer] - Vaccination Dates Date of 2cond Vaccination (if applicable): 2020 - Review of Systems Constitutional: No Symptoms, No Fever, No Chills Eyes: No Symptoms Ears, Nose, & Throat: No Symptoms Respiratory: No Symptoms, No Cough, No Dyspnea Cardiac: No Symptoms, No Chest Pain, No Edema, No Syncope Abdominal/Gastrointestinal: No Symptoms, No Abdominal Pain, No Nausea, No Vomiting, No Diarrhea Genitourinary Symptoms: No Symptoms, No Dysuria Musculoskeletal: No Symptoms, No Back Pain, No Neck Pain Skin: No Symptoms, No Rash Neurological: No Symptoms, No Dizziness, No Focal Weakness, No Sensory Changes Psychological: No Symptoms Endocrine: No Symptoms Hematologic/Lymphatic: No Symptoms Immunological/Allergic: No Symptoms All Other Systems: Reviewed and Negative - Past Medical History Pertinent Past Medical History: Yes Neurological History: No Pertinent History ENT History: No Pertinent History Cardiac History: No Pertinent History Respiratory History: Asthma Endocrine Medical History: No Pertinent History Musculoskeletal History: No Pertinent History GI Medical History: No Pertinent History History: No Pertinent History Psycho-Social History: Anxiety, Depression Female Reproductive Disorders: No Pertinent History Other Medical History: Seasonal allergies - Past Surgical History Past Surgical History: No Neuro Surgical History: No Pertinent History Cardiac: No Pertinent History Respiratory: No Pertinent History Gastrointestinal: No Pertinent History Genitourinary: No Pertinent History Musculoskeletal: No Pertinent History Female Surgical History: No Pertinent History Other Surgical History: wisdom teeth removed - Social History Smoking Status: Current every day smoker How long have you smoked: 11 yrs Exposure to second hand smoke: Yes Drug Use: none Patient Lives Alone: No - Female History Hx Last Menstrual Period: 1 month ago Hx Now: No - Nursing Vital Signs Nursing Vital Signs: Initial Vital Signs Pulse Rate 114 H 06/16/22 09:51 Respiratory Rate 20 06/16/22 09:51 Blood Pressure 142/93 06/16/22 09:51 O2 Sat by Pulse Oximetry 97 06/16/22 09:51 Pain Scale Pain Intensity 0 - Physical Exam General Appearance: no apparent distress, alert Eye Exam: PERRL/EOMI Neck Exam: normal inspection, supple Cardiovascular/Chest Exam: normal heart sounds, regular rate/rhythm Abdominal/Gastrointestinal Exam: soft, No tenderness, No distention, No mass Extremity Exam: non-tender, normal range of motion, normal inspection, no calf tenderness, no pedal edema Neurologic Exam: alert, oriented x 3, cooperative, rail splitter II-XII nml as tested, sensation nml, No motor deficits Skin Exam: normal color, warm, No dry Lymphatic Exam: No adenopathy SpO2 Interpretation: normal SpO2: 96 O2 Delivery: Room Air - Course Nursing assessment & vital signs reviewed: Yes - Radiology Exams Chest X-ray Interpretation: Teleradiologist Report (Normal heart lungs and bony thorax) Ordered Tests: Active Orders 24 hr Category Date Time Status IV Insertion STAT Care 06/16/22 10:07 Active CHEST 1 VIEW (PORTABLE) Stat Exams 06/16/22 10:24 Completed Respiratory Therapy Assessment DAILY RT 06/16/22 10:15 Active Medication Summary Generic Name Dose Route Start Last Admin Trade Name Freq PRN Reason Stop Dose Admin Magnesium Sulfate/Dextrose 100 mls @ 100 mls/hr 06/16/22 10:15 06/16/22 10:16 Magnesium 1 Gm / 100 Ml D5w IV 06/16/22 12:14 100 mls/hr Q1H CANDELARIO Administration Discontinued Medications Generic Name Dose Route Start Last Admin Trade Name Freq PRN Reason Stop Dose Admin Albuterol Sulfate 2.5 mg 06/16/22 10:06 06/16/22 10:13 Albuterol Sulfate 2.5 Mg/3 Ml Neb IH 06/16/22 10:07 2.5 mg STAT ONE Administration Albuterol Sulfate Confirm 06/16/22 10:11 Albuterol Sulfate 2.5 Mg/3 Ml Neb Administered 06/16/22 10:12 Dose 2.5 mg IH .STK-MED ONE Methylprednisolone Sodium 0 mg 06/16/22 10:06 06/16/22 10:15 Succinate 125 mg/ Sterile IV 06/16/22 10:07 125 mg Water 2 ml STAT ONE Administration Methylprednisolone Sodium Succinate Confirm 06/16/22 10:14 Methylprednis Sod Succ 125 Mg/2 Ml Vial Administered 06/16/22 10:15 Dose 125 mg .ROUTE .STK-MED ONE Sterile Water Confirm 06/16/22 10:15 Water For Injection,Sterile 10 Ml Vial Administered 06/16/22 10:16 Dose 10 ml IJ .STK-MED ONE - Progress Progress: improved Air Movement: good Progress Note: Patient reassessed. She is well. Lungs are clear. Patient requesting discharge. A prescription for a rescue inhaler was provided. Patient states she just ran out. Patient also received 3 days of prednisone 40 mg p.o. daily. No indication for further work-up at this time. X-ray chest negative. Will discharge home. Patient agrees to follow-up with her primary care doctor within 48 hours for evaluation. Portions of this note were created with voice recognition technology. There may be grammatical, spelling, punctuation or sound alike errors 06/16/22 11:01 Blood Culture(s) Obtained: No Antibiotics given: No Counseled pt/family regarding: diagnosis, need for follow-up, rad results - Departure Departure Disposition: Home Clinical Impression: Asthma exacerbation Condition: Stable Critical Care Time: No Referrals: LARRY JOHNS, [Primary Care Provider] - Follow up/PCP as directed Additional Instructions: Discharge/Care Plan MICAH THOMPSON was seen on 06/16/22 in the Emergency Room. The patient was counseled regarding Diagnosis,Lab results, Imaging studies, need for follow up and when to return to the Emergency Room. Prescriptions given: Discharge Note I have spoken with the patient and/or caregivers. I have explained the patient's condition, diagnosis and treatment plan based on the information available to me at this time. I have answered the patient's and/or caregiver's questions and addressed any concerns. The patient and/or caregivers have as good understanding of the patient's diagnosis, condition and treatment plan as can be expected at this point. The vital signs have been stable. The patient's condition is stable and appropriate for discharge from the emergency department. The patient will pursue further outpatient evaluation with the primary care physician or other designated or consulting physician as outlined in the discharge instructions. The patient and/or caregivers are agreeable to this plan of care and follow-up instructions have been explained in detail. The patient and/or caregivers have received these instruction. The patient/and or caregivers are aware that any significant change in condition or worsening of symptoms should prompt an immediate return to this or the closest emergency department or call 911. Prescriptions: Prednisone 10 mg [Deltasone 10 mg] 40 mg PO DAILY 3 Days #12 tablet Albuterol 8 gm Mdi Hfa [Ventolin Hfa MDI] 8 gm IH Q4H #1
--- NOTE | 2022-06-16 10:55 | XRAY ---
Indication: Short of breath. Comparison: October 05, 2020 Portable chest again demonstrates normal heart, lungs, and bony thorax.
== END 2022-06-16 11:37 | disposition home or self-care (01) ==
LOC: ED 09:50
DX: J45.901 Unspecified asthma with (acute) exacerbation (principal); R06.02 Shortness of breath; Z79.52 Long term (current) use of systemic steroids; Z79.899 Other long term (current) drug therapy; Z72.0 Tobacco use
CPT/HCPCS: 36000; 71045; 94640; 96374; 99283; J2930; J3475; J7609; A9270-GY

== ENCOUNTER 2022-10-19 02:13 | Emergency (ER) | payer OTHER ==
[2022-10-19 02:37] VITALS: O2SAT 100
--- NOTE | 2022-10-19 02:55 | ERPHSYRPT ---
- History of Present Illness Time Seen by Provider: 10/19/22 02:49 Source: patient Exam Limitations: no limitations Patient Subjective Stated Complaint: When asked what she was here to be seen for she stated "I wrote it down" and pointed to a piece of paper. Paper read " e xtreme tooth ache. used anbesol, midol, excedrin, detemp 1 hr ago. upper right level side. pain in right side mouth, ear, shoulder back of head neck". When asked she stated it started about 2 hours ago, that she had had this before and that she has had several teeth pulled. other questions only answered with head nod/ shake. pt requesting to not have to talk. Triage Nursing Assessment: pt ambulated to room 8 independently with slow steady gait, alert and oriented times three, requesting to not have to answer questions verbally due to pain in mouth. holding the right side of her face and rocking back and forth in bed. Physician History: Patient presents w/ a 1 hour hx of right upper tooth pain that radiates to right ear, head and neck. OTC meds not helping pain. No drainage reported. Patient doesn't have a dentist. She has had a root canal in the past. Denies fevers. Timing/Duration: abrupt onset Severity: severe ENT Location: dental Prearrival Treatment: over the counter meds Modifying Factors: Improves With: nothing Associated Symptoms: ear pain (R), facial pain/swelling, tooth pain, No cough, No fever, No ear drainage Allergies/Adverse Reactions: No Known Drug Allergies Allergy (Verified 10/05/20 18:32) Home Medications: Escitalopram Oxalate [Lexapro] 20 mg PO DAILY 06/18/19 [History] Dextroamphetamine/Amphetamine [Dextroamp-Amphetamin 20 mg Tab] 20 mg PO BID 09/21/19 [History] Loratadine 10 mg [Claritin 10 mg] 10 mg PO DAILY 09/21/19 [History] Montelukast Sodium 10 mg [Singulair 10 MG] 10 mg PO DAILY 10/05/20 [History] buPROPion HCL [Wellbutrin Xl] 300 mg PO DAILY 10/06/20 [History] Hx Tetanus, Diphtheria Vaccination/Date Given: Yes Hx Influenza Vaccination/Date Given: No Hx Pneumococcal Vaccination/Date Given: No Immunizations Up to Date: Yes Travel Risk - International Travel Have you traveled outside of the country in past 3 weeks: No - Coronavirus Screening Are you exhibiting any of the following symptoms?: No Close contact with a COVID-19 positive Pt in past 14-21 Days: No - Vaccine Status Have you recieved a Covid-19 vaccination: 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[employer] - Vaccination Dates Date of 2cond Vaccination (if applicable): 2021 - Review of Systems Constitutional: No Symptoms Eyes: No Symptoms Ears, Nose, & Throat: Ear Pain (right), Mouth Pain, No Ear Discharge Respiratory: No Symptoms Cardiac: No Symptoms Abdominal/Gastrointestinal: No Symptoms Genitourinary Symptoms: No Symptoms Musculoskeletal: No Symptoms Skin: No Symptoms Neurological: No Symptoms Psychological: No Symptoms Endocrine: No Symptoms Hematologic/Lymphatic: No Symptoms Immunological/Allergic: No Symptoms All Other Systems: Reviewed and Negative - Past Medical History Pertinent Past Medical History: Yes Neurological History: No Pertinent History ENT History: No Pertinent History Cardiac History: No Pertinent History Respiratory History: Asthma Endocrine Medical History: No Pertinent History Musculoskeletal History: No Pertinent History GI Medical History: No Pertinent History History: No Pertinent History Psycho-Social History: Anxiety, Attention Deficit Disorder, Depression Female Reproductive Disorders: No Pertinent History Other Medical History: Seasonal allergies - Past Surgical History Past Surgical History: No Neuro Surgical History: No Pertinent History Cardiac: No Pertinent History Respiratory: No Pertinent History Gastrointestinal: No Pertinent History Genitourinary: No Pertinent History Musculoskeletal: No Pertinent History Female Surgical History: No Pertinent History Other Surgical History: wisdom teeth removed - Social History Smoking Status: Never smoker How long have you smoked: 11 yrs Exposure to second hand smoke: Yes Drug Use: none Patient Lives Alone: No - Female History Hx Now: No - Nursing Vital Signs Nursing Vital Signs: Initial Vital Signs Temperature 96.5 F 10/19/22 02:27 Pulse Rate 100 H 10/19/22 02:27 Respiratory Rate 14 10/19/22 02:27 Blood Pressure 154/112 10/19/22 02:27 O2 Sat by Pulse Oximetry 100 10/19/22 02:27 Pain Scale Pain Intensity 10 - Physical Exam General Appearance: no apparent distress Ear Exam: bilateral ear: auricle normal, canal normal, TM normal Nasal Exam: normal inspection Throat Exam: pharynx normal, dental tenderness (teeth 2,3,4), No maxillary swelling Neck Exam: normal inspection, non-tender, supple, full range of motion Cardiovascular/Respiratory Exam: no respiratory distress Neurologic Exam: alert, oriented x 3, cooperative Skin Exam: normal color, warm, dry SpO2 Interpretation: normal SpO2: 100 O2 Delivery: Room Air - Course Nursing assessment & vital signs reviewed: Yes Ordered Tests: Medication Summary Generic Name Dose Route Start Last Admin Trade Name Freq PRN Reason Stop Dose Admin Benzocaine 28 gm 10/19/22 03:01 Benzocaine Oral Gel 5.1 Gm Gel..Gram. MM 10/19/22 03:02 ONCE ONE - Progress Progress: unchanged Counseled pt/family regarding: need for follow-up Medical Desision Making - Diagnostic Testing Diagnostic test were ordered, analyzed, and reviewed by me: No - Risk of complications The pt has a mod risk of morbidity or mortality based on: Need for prescription drug management - Departure Departure Disposition: Home Clinical Impression: Tooth pain Condition: Good Critical Care Time: No Referrals: LARRY JOHNS DO [Primary Care Provider] - Follow up/PCP as directed Instructions: Dental Pain (DC) Prescriptions: Amox Tr/Potass Clav. 875 mg [Augmentin 875-125 Tablet] 875 mg PO BID 7 Days #14 tablet Benzocaine [Pain Relieving Ointment] 28 gm TP TID PRN #1 unit PRN Reason: Pain
[2022-10-19] MEDS ORDERED: BENZ-O-STHETIC MM ONE ×2 (03:01→03:08)
[2022-10-19 03:18] VITALS: BP 140/82; PULSE 88
== END 2022-10-19 03:18 | disposition home or self-care (01) ==
LOC: ED 02:13
DX: K08.89 Other specified disorders of teeth and supporting structures (principal); Z79.899 Other long term (current) drug therapy
CPT/HCPCS: 99281; A9270-GY

== ENCOUNTER 2023-04-28 02:10 | Emergency (ER) | payer OTHER ==
[2023-04-28 02:18] VITALS: TEMP 97.3
[2023-04-28] MEDS ORDERED: DUONEB 0.5-3 MG/3 ml Neb IH ONE ×2 (02:25→02:29)
--- NOTE | 2023-04-28 02:26 | ERPHSYRPT ---
- History of Present Illness Time Seen by Provider: 04/28/23 02:20 Source: patient Exam Limitations: no limitations Physician History: This is a 28-year-old overweight female who 1 hour prior to arrival began having some shortness of breath and wheezing. Patient states she is allergic to her dog. She did take a nebulizer treatment of albuterol. She also gave herself a shot of an EpiPen. Patient has a history of asthma, anxiety, attention deficit disorder and seasonal allergies. She is on daily loratadine. Patient states she does have a prescription for EpiPen. There are no hives present. Her room air oxygen saturation levels 97%. She is tachycardic but she did just receive a self injection of epinephrine prior to arrival Timing/Duration: today, improved Activities at Onset: none Severity of Dyspnea-Max: mild (To moderate) Severity of Dyspnea-Current: mild (To moderate) Possible Cause: allergen exposure (Or possible asthma attack) Associated Symptoms: anxiety, wheezing Allergies/Adverse Reactions: No Known Drug Allergies Allergy (Verified 04/28/23 02:12) Home Medications: Escitalopram Oxalate [Lexapro] 20 mg PO DAILY 06/18/19 [History] Dextroamphetamine/Amphetamine [Dextroamp-Amphetamin 20 mg Tab] 20 mg PO BID 09/21/19 [History] Loratadine 10 mg [Claritin 10 mg] 10 mg PO DAILY 09/21/19 [History] Montelukast Sodium 10 mg [Singulair 10 MG] 10 mg PO DAILY 10/05/20 [History] buPROPion HCL [Wellbutrin Xl] 300 mg PO DAILY 10/06/20 [History] Hx Tetanus, Diphtheria Vaccination/Date Given: Yes Hx Influenza Vaccination/Date Given: No Hx Pneumococcal Vaccination/Date Given: No Travel Risk - International Travel Have you traveled outside of the country in past 3 weeks: No - Coronavirus Screening Are you exhibiting any of the following symptoms?: No Close contact with a COVID-19 positive Pt in past 14-21 Days: No - Vaccine Status Have you recieved a Covid-19 vaccination: Yes [employer]: [employer] - Vaccination Dates Date of 2cond Vaccination (if applicable): 2021 - Review of Systems Constitutional: No Symptoms Eyes: No Symptoms Ears, Nose, & Throat: No Symptoms Respiratory: Dyspnea (Mild), Wheezing Cardiac: No Symptoms Abdominal/Gastrointestinal: No Symptoms Genitourinary Symptoms: No Symptoms Musculoskeletal: No Symptoms Skin: No Symptoms Neurological: No Symptoms Psychological: No Symptoms Endocrine: No Symptoms Hematologic/Lymphatic: No Symptoms Immunological/Allergic: No Symptoms All Other Systems: Reviewed and Negative - Past Medical History Pertinent Past Medical History: Yes Neurological History: No Pertinent History ENT History: No Pertinent History Cardiac History: No Pertinent History Respiratory History: Asthma Endocrine Medical History: No Pertinent History Musculoskeletal History: No Pertinent History GI Medical History: No Pertinent History History: No Pertinent History Psycho-Social History: Anxiety, Attention Deficit Disorder, Depression Female Reproductive Disorders: No Pertinent History Other Medical History: Seasonal allergies - Past Surgical History Past Surgical History: No Neuro Surgical History: No Pertinent History Cardiac: No Pertinent History Respiratory: No Pertinent History Gastrointestinal: No Pertinent History Genitourinary: No Pertinent History Musculoskeletal: No Pertinent History Female Surgical History: No Pertinent History Other Surgical History: wisdom teeth removed - Social History Smoking Status: Never smoker How long have you smoked: 11 yrs Exposure to second hand smoke: Yes Drug Use: none Patient Lives Alone: No - Nursing Vital Signs Nursing Vital Signs: Initial Vital Signs Temperature 97.3 F 04/28/23 02:11 Pulse Rate 121 H 04/28/23 02:11 Respiratory Rate 19 04/28/23 02:11 Blood Pressure 138/90 04/28/23 02:11 O2 Sat by Pulse Oximetry 97 04/28/23 02:11 Pain Scale Pain Intensity 0 - Physical Exam General Appearance: no apparent distress, alert, anxiety, obese Eye Exam: PERRL/EOMI, eyes nml inspection Ears, Nose, Throat Exam: hearing grossly normal, normal ENT inspection, normal pharynx Neck Exam: normal inspection, non-tender, supple, full range of motion Respiratory Exam: wheezing, No respiratory distress Cardiovascular/Chest Exam: tachycardia Abdominal/Gastrointestinal Exam: No tenderness Rectal Exam: not done Extremity Exam: non-tender, normal range of motion, normal inspection Neurologic Exam: alert, oriented x 3, cooperative, building official II-XII nml as tested, normal mood/affect, nml cerebellar function, nml station & gait, sensation nml Skin Exam: normal color, warm, dry, No rash Lymphatic Exam: adenopathy SpO2 Interpretation: normal SpO2: 97 O2 Delivery: Room Air - Course Nursing assessment & vital signs reviewed: Yes - Progress Progress: improved Air Movement: good Progress Note: 04/28/23 02:25 This patient's medical issue is 1 of low to moderate complexity. The level of complexity and the work-up performed is based on review of the patient's past medical history, review of the patient's medication list, and review of the patient's current presenting complaint and physical findings on examination. The work-up in this patient will not include laboratory studies or radiographic studies. We will place an intravenous line and provide the patient with a dose of Benadryl intravenously, and 25 mg Solu-Medrol and 40 mg of intravenous Pepcid. We will have respiratory therapy evaluate and manage this patient. Blood Culture(s) Obtained: No Antibiotics given: No Counseled pt/family regarding: diagnosis, need for follow-up Medical Desision Making - Independent Historian Additional History obtained from: Relative/friend - Diagnostic Testing Diagnostic test were ordered, analyzed, and reviewed by me: Yes - Risk of complications The pt has a mod risk of morbidity or mortality based on: Need for prescription drug management - Departure Departure Disposition: Home Clinical Impression: Asthma attack Condition: Stable Critical Care Time: No Referrals: LARRY JOHNS DO [Primary Care Provider] - Follow up/PCP as directed Additional Instructions: Continue your nebulizer treatments every 4 hours while awake for the next 48 hours. Continue your daily loratadine. Take Pepcid 20 mg orally daily for 5 days. Take your steroids as prescribed. Prescriptions: Prednisone 10 mg [Deltasone 10 mg] 10 mg PO TID #12 tablet Famotidine 20 mg [Pepcid 20 MG] 20 mg PO DAILY #5 tablet
[2023-04-28] MEDS ORDERED: solu-MEDROL 125 MG, Sterile H2O 10 ml 2 ML IV ONE ×2 (02:28)
[2023-04-28] MEDS ORDERED: BENADRYL 50 MG/ML IV ONE (02:28)
[2023-04-28] MEDS ORDERED: Pepcid 20 MG VIAL IV ONE ×2 (02:28→02:35)
[2023-04-28] MEDS ORDERED: solu-MEDROL ONE (02:35)
[2023-04-28] MEDS ORDERED: BENADRYL 50 MG/ML ONE (02:35)
[2023-04-28] MEDS ORDERED: Sterile H2O 10 ml IJ ONE (02:35)
[2023-04-28 02:37] VITALS: PULSE 118; RESP 15; O2SAT 98
[2023-04-28 03:08] VITALS: BP 130/85
== END 2023-04-28 03:00 | disposition home or self-care (01) ==
LOC: ED 02:10
DX: J45.901 Unspecified asthma with (acute) exacerbation (principal); R06.02 Shortness of breath; Z79.52 Long term (current) use of systemic steroids; Z79.899 Other long term (current) drug therapy
CPT/HCPCS: 36000; 94640; 96374; 96375; 99283; J1200; J2930; A9270-GY